=== PATIENT | male | born 1960 | race Caucasian/White ===

== ENCOUNTER 2017-07-06 12:49 | Emergency (ER) | payer BC ==
[~2017-07-06 12:49] MED LIST: ACET325T9 PO; ASCO100T4 PO; CETI10CA PO; CIPR250T30 PO; MULT-245 PO; OMEG300C PO
[2017-07-06 12:50] VITALS: BP 148/106
[2017-07-06] MEDS ORDERED: KETOROLAC 60 MG/2 ML VIAL. IM ONE (15:30)
[2017-07-06] MEDS ORDERED: CYCL-331 PO (15:55)
[2017-07-06] MEDS ORDERED: DICL100G18 TP (15:55)
--- NOTE | 2017-07-06 15:55 | PHYS DOC ---
Past History Past Medical History: COPD, Diverticulitis Past Surgical History: Other Alcohol Use: Occasionally Drug Use: None Adult General Chief Complaint Chief Complaint: GROIN PAIN HPI HPI Patient is a 56 year old M who presents with left groin pain started 5-6 weeks ago. He states that his pain is dull constant with intermittent worsening. He is associated with change in position and rotation of his hip. He also has developed lateral leg pain. He describes radiating pain down the lateral leg as well as the medial leg. He denies numbness or tingling. He has no back pain. He denies injury however he feels that he has been more active over the past 3-4 weeks His no other exacerbating or alleviating factors. He has no other associated symptoms. Review of Systems Review of Systems Constitutional: Denies fever or chills [] Eyes: Denies change in visual acuity, redness, or eye pain [] HENT: Denies nasal congestion or sore throat [] Respiratory: Denies cough or shortness of breath [] Cardiovascular: No additional information not addressed in HPI [] GI: Denies abdominal pain, nausea, vomiting, bloody stools or diarrhea [] : Denies dysuria or hematuria [] Musculoskeletal: Negative except history of present illness Integument: Denies rash or skin lesions [] Neurologic: Denies headache, focal weakness or sensory changes [] Endocrine: Denies polyuria or polydipsia [] All other systems were reviewed and found to be within normal limits, except as documented in this note. Family History Family History No pertinent family medical history was reported Current Medications Current Medications Current medications were reviewed Current Medications Medications (Trade) Dose Ordered Sig/[facility] Start Time Stop Time Status Last Admin Dose Admin Ketorolac Tromethamine (Toradol) 60 mg 1X ONCE 07/06/17 15:30 07/06/17 15:31 DC 07/06/17 15:16 60 MG Allergies Allergies Allergies Coded Allergies Type Severity Reaction Last Updated Verified Fenofibrate Nanocrystallized Allergy Mild 08/24/13 Yes Penicillins Allergy Mild 08/24/13 Yes fenofibrate,micronized Allergy Mild 08/24/13 Yes Physical Exam Physical Exam Constitutional: Well developed, well nourished, no acute distress, non-toxic appearance. [] HENT: Normocephalic, atraumatic, bilateral external ears normal, oropharynx moist, no oral exudates, nose normal. [] Eyes: PERRLA, EOMI, conjunctiva normal, no discharge. [] Neck: Normal range of motion, no tenderness, supple, no stridor. [] Cardiovascular:Heart rate regular rhythm, Lungs & Thorax: Bilateral breath sounds clear to auscultation [] Abdomen: Bowel sounds normal, soft, no tenderness, no masses, no pulsatile masses. [] Skin: Warm, dry, no erythema, no rash. [] Back: No tenderness, no CVA tenderness. [] Extremities: no cyanosis, no clubbing, ROM intact, no edema. [] Mild tenderness over the left greater trochanteric bursa. Pain reproducible with internal rotation of the hip. Normal range of motion and strength. No obvious injury noted Neurologic: Alert and oriented X 3, normal motor function, normal sensory function, no focal deficits noted. [] Psychologic: Affect normal, judgement normal, mood normal. [] Current Patient Data Vital Signs Vital Signs Date Time Temp Pulse Resp B/P (MAP) Pulse Ox O2 Delivery O2 Flow Rate FiO2 07/06/17 12:50 97.8 103 18 95 Room Air EKG EKG [] Radiology/Procedures Radiology/Procedures Two-view hip and pelvis x-ray Impressions: No acute disease Course & Med Decision Making Course & Med Decision Making Pertinent Labs and Imaging studies reviewed. (See chart for details) [] Dragon Disclaimer Dragon Disclaimer This electronic medical record was generated, in whole or in part, using a voice recognition dictation system. Departure Departure: Impression: Primary Impression: Muscle spasm Additional Impression: Greater trochanteric bursitis of left hip Disposition: HOME, SELF-CARE Condition: STABLE Referrals: FARZANEH STAPLETON (PCP) Patient Instructions: Hip Bursitis, Piriformis Syndrome Additional Instructions: Jack was seen in the emergency department for hip pain. No emergency medical condition was found on history or physical exam. He did have a normal x-ray. His symptoms are most consistent with bursitis of the hip as well as muscle spasm. He is given a prescription for Flexeril to treat his muscle spasm and full-term gel to use on his outside hip. He was encouraged to follow-up with his primary care doctor as soon as possible for further management. Scripts Diclofenac Sodium (VOLTAREN) 100 Gm Gel..gram. 1 GM TP QID, #100 GM 2 Refills Prov: DARLIN KIM MD 07/06/17 Cyclobenzaprine Hcl (CYCLOBENZAPRINE HCL) 10 Mg Tablet 1 TAB PO TID Y for PAIN for 3 Days, #9 TAB Prov: DARLIN KIM MD 07/06/17 Problem Qualifiers DARLIN KIM MD Jul 06, 2017 15:55
--- NOTE | 2017-07-06 15:55 | RAD ---
Left hip 2 views with one view pelvis. History: Left hip pain Single view was taken of the pelvis. There is no pelvic fracture or acute osseous abnormality. AP and lateral views were taken the left hip. There is no fracture or acute osseous abnormality. Impression: 1. Negative pelvis. 2. Negative left hip.
== END 2017-07-06 16:05 | disposition home or self-care (01) ==
LOC: ER 12:49
DX: M70.62 Trochanteric bursitis, left hip (principal); R10.32 Left lower quadrant pain; M62.838 Other muscle spasm; J44.9 Chronic obstructive pulmonary disease, unspecified; Z88.0 Allergy status to penicillin; Z88.8 Allergy status to other drugs, medicaments and biological substances
CPT/HCPCS: 73502; 96372; 99284; J1885

== ENCOUNTER 2017-08-09 22:44 | Emergency (ER) | payer BC, OTHER ==
[~2017-08-09] VITALS: Ht 182.9 cm; Wt 113.4 kg
[~2017-08-09 22:44] MED LIST changes: +CYCL-331 PO; +DICL100G18 TP
[2017-08-09 23:32] LABS: BASO # 0.1 x10^3/uL (0.0-0.2); BASO % 1 % (0-3); EOS # 0.1 x10^3/uL (0.0-0.7); EOS % 1 % (0-3); HEMATOCRIT 46.9 % (39.0-53.0); HEMOGLOBIN 16.6 g/dL (13.0-17.5); LYMPH # 2.2 x10^3/uL (1.0-4.8); LYMPH % 27 % (24-48); MEAN CORPUSCULAR HEMOGLOBIN 33 pg (25-35); MEAN CORPUSCULAR HGB CONC 35 g/dL (31-37); MEAN CORPUSCULAR VOLUME 93 fL (79-100); MONO # 0.7 x10^3/uL (0.0-1.1); MONO % 8 % (0-9); NEUT # 5.1 x10^3uL (1.8-7.7); NEUT % 62 % (31-73); PLATELET COUNT 152 x10^3/uL (140-400); RED BLOOD COUNT 5.07 x10^6/uL (4.30-5.70); RED CELL DISTRIBUTION WIDTH 12.5 % (11.5-14.5); WHITE BLOOD COUNT 8.2 x10^3/uL (4.0-11.0)
[2017-08-09 23:37] LABS: CALCIUM 8.5 mg/dL (8.5-10.1); CREATININE 1.3 mg/dL (0.7-1.3); GFR 56.9; POTASSIUM 3.6 mmol/L (3.5-5.1)
--- NOTE | 2017-08-09 23:38 | PHYS DOC ---
Past History Past Medical History: COPD, Diverticulitis Past Surgical History: Tonsillectomy, Other Smoking: Cigarettes Alcohol Use: Occasionally Drug Use: None Adult General Chief Complaint Chief Complaint: LOWER EXTREMITY SWELLING HPI HPI Patient is a 56 year old male who presents with right calf swelling and pain. He states it started on Friday. On he was seen in the doctors office (Dr Franklin) for a recheck on his right hip pain (since June) and placed on antibiotics then for a sore throat. He states that the pain has been constant. No chest pain, no shortness of air. No travel or immobilization. No abdominal complaints, no nausea, vomiting and diarrhea. He feels like the leg might be more red. No flu vaccine this year. Review of Systems Review of Systems Constitutional: Denies fever or chills Eyes: Denies change in visual acuity, redness, or eye pain HENT: Denies nasal congestion or sore throat Respiratory: Denies cough or shortness of breath Cardiovascular: No chest pain GI: Denies abdominal pain, nausea, vomiting, bloody stools or diarrhea : Denies dysuria or hematuria Musculoskeletal: Denies back pain. Chronic left hip pain. POS right lower leg pain and swelling. Integument: Denies rash or skin lesions Neurologic: Denies headache, focal weakness or sensory changes ia All other systems were reviewed and found to be within normal limits, except as documented in this note. Allergies Allergies Allergies Coded Allergies Type Severity Reaction Last Updated Verified Fenofibrate Nanocrystallized Allergy Mild 08/24/13 Yes Penicillins Allergy Mild 08/24/13 Yes fenofibrate,micronized Allergy Mild 08/24/13 Yes Physical Exam Physical Exam Constitutional: Well developed, well nourished, no acute distress, non-toxic appearance. HENT: Normocephalic, atraumatic, bilateral external ears normal, oropharynx moist, no oral exudates, nose normal. Eyes: PERRLA, EOMI, conjunctiva normal, no discharge. Neck: Normal range of motion, no tenderness, supple, no stridor. Cardiovascular:Heart rate regular rhythm, no murmur Lungs & Thorax: Bilateral breath sounds clear to auscultation Abdomen: Bowel sounds normal, soft, no tenderness, no masses, no pulsatile masses. Skin: Warm, dry, no erythema, no rash. Back: No tenderness, no CVA tenderness. Extremities: Minimal tenderness right lower leg, no cyanosis, no clubbing, ROM intact, no edema. No erythema or skin changes noted. Neurologic: Alert and oriented X 3, normal motor function, normal sensory function, no focal deficits noted. Current Patient Data Vital Signs T 98, P 86, BP 186/100, sat 93%, RR 14 Lab Results Laboratory Tests Test 08/09/17 23:10 White Blood Count 8.2 x10^3/uL (4.0-11.0) Red Blood Count 5.07 x10^6/uL (4.30-5.70) Hemoglobin 16.6 g/dL (13.0-17.5) Hematocrit 46.9 % (39.0-53.0) Mean Corpuscular Volume 93 fL (79-100) Mean Corpuscular Hemoglobin 33 pg (25-35) Mean Corpuscular Hemoglobin Concent 35 g/dL (31-37) Red Cell Distribution Width 12.5 % (11.5-14.5) Platelet Count 152 x10^3/uL (140-400) Neutrophils (%) (Auto) 62 % (31-73) Lymphocytes (%) (Auto) 27 % (24-48) Monocytes (%) (Auto) 8 % (0-9) Eosinophils (%) (Auto) 1 % (0-3) Basophils (%) (Auto) 1 % (0-3) Neutrophils # (Auto) 5.1 x10^3uL (1.8-7.7) Lymphocytes # (Auto) 2.2 x10^3/uL (1.0-4.8) Monocytes # (Auto) 0.7 x10^3/uL (0.0-1.1) Eosinophils # (Auto) 0.1 x10^3/uL (0.0-0.7) Basophils # (Auto) 0.1 x10^3/uL (0.0-0.2) Sodium Level 140 mmol/L (136-145) Potassium Level 3.6 mmol/L (3.5-5.1) Chloride Level 103 mmol/L (98-107) Carbon Dioxide Level 27 mmol/L (21-32) Anion Gap 10 (6-14) Blood Urea Nitrogen 9 mg/dL (8-26) Creatinine 1.3 mg/dL (0.7-1.3) Estimated GFR (Cockcroft-Gault) 56.9 Glucose Level 157 mg/dL (70-99) Calcium Level 8.5 mg/dL (8.5-10.1) Radiology/Procedures Radiology/Procedures [address] [id number] IMAGING REPORT Signed PATIENT: CODY BANKS ACCOUNT: [id number] : 1960 LOCATION: ER AGE: 56 SEX: M EXAM STATUS: REG ER ORD. PHYSICIAN: KASHMIR BRICEÑO MD REASON: Calf pain and swelling-right/US tech will be here in 40 mins jnr PROCEDURE: VENOUS LOWER EXTREMITY RIGHT EXAM: Right lower extremity venous Doppler. HISTORY: Right lower extremity pain/swelling. COMPARISON: None. FINDINGS: Grayscale and Doppler analysis of the right lower extremity deep venous system was performed with graded compression and augmentation. The common femoral, greater saphenous, superficial femoral, popliteal and calf veins were assessed. There is no evidence of deep venous thrombosis. An incidental right inguinal lymph node appears benign. IMPRESSION: 1. No evidence of deep venous thrombosis. Electronically signed by: Negin Kevin MD (08/10/2017 12:49 AM) [facility] DICTATED AND SIGNED BY: ALIZE KEVIN MD DATE: 08/10/17 0048 CC: KASHMIR BRICEÑO MD; DARLIN FRANKLIN MD ~ Course & Med Decision Making Course & Med Decision Making Evaluated patient upon arrival. US ordered to r/o DVT. His blood pressure is elevated; which he states it has been elevated in the past "but not high enough in the office to start me on medication." At midnight: lab normal. Awaiting US arrival. At 0020 am US here.At 0045 am: US negative for DVT. Lymph nodes noted. He is on Doxycycline for a sore throat presently. That will cover him for cellulitis. He is to follow up with his PCP. Toradol IV for pain given here. I have spoken with the patient and/or caregivers. I have explained the patient' s condition, diagnosis and treatment plan based on the information available to me at this time. I have answered the patient's and/or caregiver's questions and addressed any concerns. The patient and/or caregivers have as good an understanding of the patient's diagnosis, condition and treatment plan as can be expected at this point. The patient's condition is stable and appropriate for discharge from the emergency department. The patient will pursue further outpatient evaluation with the primary care physician or other designated or consulting physician as outlined in the discharge instructions. The patient and/or caregivers are agreeable to this plan of care and follow-up instructions have been explained in detail. The patient and/or caregivers have received these instructions in written format and have expressed an understanding of the discharge instructions. The patient and/or caregivers are aware that any significant change in condition or worsening of symptoms should prompt an immediate return to this or the closest emergency department or a call to 911. Rosemary Disclaimer Dragon Disclaimer This electronic medical record was generated, in whole or in part, using a voice recognition dictation system. Departure Departure: Impression: Primary Impression: Right leg pain Additional Impression: Cellulitis of right leg Disposition: HOME, SELF-CARE Condition: STABLE Referrals: DARLIN FRANKLIN MD (PCP) Patient Instructions: Cellulitis Additional Instructions: KEEP TAKING YOUR DOXYCYLINE THAT IS ALREADY PRESCRIBED. CALL YOUR DOCTOR'S OFFICE ON FRIDAY FOR A RECHECK Scripts Naproxen (NAPROSYN) 500 Mg Tablet 1 TAB PO BID, #30 TAB 1 Refill Prov: KASHMIR BRICEÑO MD 08/10/17 Problem Qualifiers KASHMIR BRICEÑO MD Aug 09, 2017 23:38
[2017-08-10] MEDS ORDERED: NAPR-683 PO (00:52)
--- NOTE | 2017-08-10 00:52 | RAD ---
EXAM: Right lower extremity venous Doppler. HISTORY: Right lower extremity pain/swelling. COMPARISON: None. FINDINGS: Grayscale and Doppler analysis of the right lower extremity deep venous system was performed with graded compression and augmentation. The common femoral, greater saphenous, superficial femoral, popliteal and calf veins were assessed. There is no evidence of deep venous thrombosis. An incidental right inguinal lymph node appears benign. IMPRESSION: 1. No evidence of deep venous thrombosis. Electronically signed by: Negin Kevin MD (08/10/2017 12:49 AM) [facility]
[2017-08-10 00:57] LABS: BILIRUBIN,URINE NEG (NEG); CLARITY,URINE CLEAR; COLOR,URINE YELLOW; GLUCOSE,URINE NEG (NEG)
[2017-08-10 00:58] LABS: BACTERIA,URINE 0 /HPF (0-FEW); NITRITE,URINE NEG (NEG); RBC,URINE 0 /HPF (0-2); UROBILINOGEN,URINE 0.2 mg/dL (0.2 mg/dL); WBC,URINE 0 /HPF (0-4)
[2017-08-10 01:00] VITALS: BP 153/93
[2017-08-10] MEDS ORDERED: KETOROLAC 30 MG/ML VIAL. IV ONE (01:00)
== END 2017-08-10 01:04 | disposition home or self-care (01) ==
LOC: ER 22:44
DX: L03.115 Cellulitis of right lower limb (principal); G89.29 Other chronic pain; F17.210 Nicotine dependence, cigarettes, uncomplicated; J44.9 Chronic obstructive pulmonary disease, unspecified; Z88.0 Allergy status to penicillin; Z88.8 Allergy status to other drugs, medicaments and biological substances
CPT/HCPCS: 36415; 80048; 81001; 85025; 93971; 96374; 99285; J1885

== ENCOUNTER 2017-11-25 16:50 | Emergency (ER) | payer OTHER ==
[~2017-11-25] VITALS: Ht 182.9 cm; Wt 113.4 kg
[~2017-11-25 16:50] MED LIST changes: +NAPR-683 PO
[2017-11-25] MEDS ORDERED: IBUPROFEN 800 MG TABLET. PO ONE (17:45)
--- NOTE | 2017-11-25 17:50 | PHYS DOC ---
Past History Past Medical History: COPD, Diverticulitis Past Surgical History: Tonsillectomy, Other Smoking: Cigarettes Alcohol Use: Occasionally Drug Use: None Adult General Chief Complaint Chief Complaint: LOWER EXT PAIN HPI HPI 57-year-old male patient states he lost his balance and twisted his left lower extremity and felt severe pain from back of his knee radiated to his ankle and rated his pain 10 over 10. Patient states he was not able to walk after injury but after few minutes he was able to walk. Patient rated his pain 8/10 and denies focal neuro deficit or other injuries. Review of Systems Review of Systems Constitutional: Denies fever or chills [] Eyes: Denies change in visual acuity, redness, or eye pain [] HENT: Denies nasal congestion or sore throat [] Respiratory: Denies cough or shortness of breath [] Cardiovascular: No additional information not addressed in HPI [] GI: Denies abdominal pain, nausea, vomiting, bloody stools or diarrhea [] : Denies dysuria or hematuria [] Musculoskeletal: Denies back pain, reports joint pain [] Integument: Denies rash or skin lesions [] Neurologic: Denies headache, focal weakness or sensory changes [] Endocrine: Denies polyuria or polydipsia [] All other systems were reviewed and found to be within normal limits, except as documented in this note. Current Medications Current Medications Current Medications Medications (Trade) Dose Ordered Sig/[facility] Start Time Stop Time Status Last Admin Dose Admin Ibuprofen (Motrin) 800 mg 1X ONCE 11/25/17 17:45 11/25/17 17:46 Allergies Allergies Allergies Coded Allergies Type Severity Reaction Last Updated Verified Fenofibrate Nanocrystallized Allergy Mild 08/24/13 Yes Penicillins Allergy Mild 08/24/13 Yes fenofibrate,micronized Allergy Mild 08/24/13 Yes Physical Exam Physical Exam Constitutional: Well developed, well nourished, mild distress, non-toxic appearance. [] HEENT: Atraumatic] Eyes: PERRLA, EOMI, conjunctiva normal, no discharge. [] Neck: Normal range of motion, no tenderness, supple, no stridor. [] Cardiovascular:Heart rate regular rhythm, no murmur [] Lungs & Thorax: Bilateral breath sounds clear to auscultation [] Skin: Warm, dry, no erythema, no rash. [] Extremities: Left lower extremity without sign of injury or edema or deformity, normal range of motion of left knee and ankle, mild tenderness in lateral malleolus, no neurovascular deficit Neurologic: Alert and oriented X 3, normal motor function, normal sensory function, no focal deficits noted. [] Psychologic: Affect normal, judgement normal, mood normal. [] Current Patient Data Vital Signs Vital Signs Date Time Temp Pulse Resp B/P (MAP) Pulse Ox O2 Delivery O2 Flow Rate FiO2 11/25/17 17:26 98.1 98 18 98 Room Air EKG EKG [] Radiology/Procedures Radiology/Procedures X-ray of the knee and ankle was interpreted by me. No sign of acute fracture. There is a 2 mm calcification area in the posterior of left knee or possible avulsion fracture[] Course & Med Decision Making Course & Med Decision Making Pertinent Imaging studies reviewed. (See chart for details) [] Dragon Disclaimer Dragon Disclaimer This electronic medical record was generated, in whole or in part, using a voice recognition dictation system. Departure Departure: Impression: Primary Impression: Ankle sprain Additional Impressions: Knee sprain Tobacco abuse Tobacco abuse counseling Disposition: HOME, SELF-CARE (At 181) Condition: IMPROVED Referrals: DARLIN FRANKLIN MD (PCP) Patient Instructions: Ankle Sprain, Knee Sprain, Smoking Cessation Additional Instructions: Apply ice on the affected area Follow-up with your primary care physician in 3-5 days Return to ER if not getting better Scripts Ibuprofen (IBUPROFEN) 800 Mg Tablet 1 TAB PO TID, #30 TAB Prov: HERBERTH BLAIR MD 11/25/17 Hydrocodone Bit/Acetaminophen (NORCO 5-325 TABLET) 1 Each Tablet 1 TAB PO PRN Q6HRS Y for PAIN for 14 Days, TAB 0 Refills Prov: HERBERTH BLAIR MD 11/25/17 Problem Qualifiers HERBERTH BLAIR MD November 25, 2017 17:50
[2017-11-25] MEDS ORDERED: HYDR-971 PO (18:14)
[2017-11-25] MEDS ORDERED: IBUP800T19 PO (18:14)
[2017-11-25 18:29] VITALS: BP 154/86
--- NOTE | 2017-11-26 08:11 | RAD ---
ANKLE LEFT 3V, KNEE LEFT 3V History: SWOLLEN ANKLE.INJURY THIS PM BY STEPPING INCORRECTLY OFF A LADDER. TWISTED ANKLE, RADIATING PAIN IN LOWER CALF Comparison: None. Findings: Left ankle: 3 views of the left ankle are submitted. No acute fracture or dislocation is identified. There is plantar calcaneal enthesophyte. Left knee: 3 views of the left knee are submitted. No acute fracture is identified. There is no significant joint effusion. It is difficult to confirm integrity of patellar tendon on this exam. Impression: 1. It is difficult to confirm patellar tendon integrity on this exam, correlation with clinical findings advised. Otherwise no acute fracture identified of the left knee. 2. No acute fracture is identified of the left ankle. Electronically signed by: Romeo Navarrete MD (11/26/2017 8:08 AM) [id number]
== END 2017-11-25 18:30 | disposition home or self-care (01) ==
LOC: ER 16:50
DX: S93.402A Sprain of unspecified ligament of left ankle, initial encounter (principal); S83.92XA Sprain of unspecified site of left knee, initial encounter; J44.9 Chronic obstructive pulmonary disease, unspecified; F17.210 Nicotine dependence, cigarettes, uncomplicated; Z88.0 Allergy status to penicillin; Z88.8 Allergy status to other drugs, medicaments and biological substances; X50.1XXA Overexertion from prolonged static or awkward postures, initial encounter; Y93.89 Activity, other specified; Y92.89 Other specified places as the place of occurrence of the external cause; Y99.8 Other external cause status
CPT/HCPCS: 73562; 73610; 99284

== ENCOUNTER 2018-09-20 12:32 | Emergency (ER) | payer OTHER ==
[~2018-09-20] VITALS: Ht 182.9 cm; Wt 115.9 kg
[~2018-09-20 12:32] MED LIST changes: +HYDR-3165 PO; +IBUP800T19 PO
[2018-09-20 13:05] LABS: BASO # 0.1 x10^3/uL (0.0-0.2); BASO % 1 % (0-3); EOS # 0.1 x10^3/uL (0.0-0.7); EOS % 1 % (0-3); HEMATOCRIT 53.3 % (39.0-53.0); HEMOGLOBIN 18.6 g/dL (13.0-17.5); LYMPH # 2.2 x10^3/uL (1.0-4.8); LYMPH % 26 % (24-48); MEAN CORPUSCULAR HEMOGLOBIN 33 pg (25-35); MEAN CORPUSCULAR HGB CONC 35 g/dL (31-37); MEAN CORPUSCULAR VOLUME 93 fL (79-100); MONO # 0.6 x10^3/uL (0.0-1.1); MONO % 7 % (0-9); NEUT # 5.6 x10^3uL (1.8-7.7); NEUT % 65 % (31-73); PLATELET COUNT 164 x10^3/uL (140-400); RED BLOOD COUNT 5.72 x10^6/uL (4.30-5.70); RED CELL DISTRIBUTION WIDTH 13.1 % (11.5-14.5); WHITE BLOOD COUNT 8.6 x10^3/uL (4.0-11.0)
[2018-09-20] MEDS ORDERED: ASPIRIN 81 MG TAB.CHEW PO ONE (13:15)
[2018-09-20 13:18] LABS: ALBUMIN 4.1 g/dL (3.4-5.0); CALCIUM 8.6 mg/dL (8.5-10.1); CREATININE 0.9 mg/dL (0.7-1.3); GFR 86.4; POTASSIUM 4.1 mmol/L (3.5-5.1); TOTAL BILIRUBIN 0.4 mg/dL (0.2-1.0); TOTAL PROTEIN 8.1 g/dL (6.4-8.2)
--- NOTE | 2018-09-20 13:55 | PHYS DOC ---
Past History Past Medical History: COPD, Diverticulitis Past Surgical History: Tonsillectomy, Other Smoking: Cigarettes Alcohol Use: Occasionally Drug Use: None Adult General Chief Complaint Chief Complaint: CHEST PAIN HPI HPI 58-year-old male presents with chest pain and central back pain. Patient states he's been having intermittent pain that started between his shoulder blades for 7-8 days. It is worse with movement and sometimes with deep breathing. Patient presents today because the pain seems to work around to the middle of his chest. Patient has not had a stress test or cardiac catheter in the past. About 25 years ago he had fluid around his heart and his lungs but was never really told why that was. He had been drained and has had no trouble since. Patient has had mild shortness of breath but denies diaphoresis. This is not worse with activity it seems to be intermittent in its own schedule. Patient has not had fever or chills. No recent falls, trauma, or overuse that he can think of. Review of Systems Review of Systems Constitutional: Denies fever or chills [] Eyes: Denies change in visual acuity, redness, or eye pain [] HENT: Denies nasal congestion or sore throat [] Respiratory: Denies cough or shortness of breath [] Cardiovascular: No additional information not addressed in HPI [] GI: Denies abdominal pain, nausea, vomiting, bloody stools or diarrhea [] : Denies dysuria or hematuria [] Musculoskeletal: Right sided posterior chest wall pain[] Integument: Denies rash or skin lesions [] Neurologic: Denies headache, focal weakness or sensory changes [] Endocrine: Denies polyuria or polydipsia [] All other systems were reviewed and found to be within normal limits, except as documented in this note. Current Medications Current Medications Current Medications Medications (Trade) Dose Ordered Sig/Chantel Start Time Stop Time Status Last Admin Dose Admin Aspirin (Children'S Aspirin) 324 mg 1X ONCE 09/20/18 13:15 09/20/18 13:16 DC 09/20/18 13:16 324 MG Allergies Allergies Allergies Coded Allergies Type Severity Reaction Last Updated Verified Fenofibrate Nanocrystallized Allergy Mild 08/24/13 Yes Penicillins Allergy Mild 08/24/13 Yes fenofibrate,micronized Allergy Mild 08/24/13 Yes Physical Exam Physical Exam Constitutional: Well developed, well nourished, no acute distress, non-toxic appearance. [] HENT: Normocephalic, atraumatic, bilateral external ears normal, oropharynx moist, no oral exudates, nose normal. [] Eyes: PERRLA, EOMI, conjunctiva normal, no discharge. [] Neck: Normal range of motion, no tenderness, supple, no stridor. [] Cardiovascular:Heart rate regular rhythm, no murmur [] Lungs & Thorax: Bilateral breath sounds clear to auscultation [] Abdomen: Bowel sounds normal, soft, no tenderness, no masses, no pulsatile masses. [] Skin: Warm, dry, no erythema, no rash. [] Back: Mild paraspinal tenderness to the T7-8[] Extremities: No tenderness, no cyanosis, no clubbing, ROM intact, no edema. [] Neurologic: Alert and oriented X 3, normal motor function, normal sensory function, no focal deficits noted. [] Psychologic: Affect normal, judgement normal, mood normal. [] Current Patient Data Vital Signs Vital Signs Date Time Temp Pulse Resp B/P (MAP) Pulse Ox O2 Delivery O2 Flow Rate FiO2 09/20/18 12:32 98.2 83 18 95 Room Air Lab Results Laboratory Tests Test 09/20/18 12:47 White Blood Count 8.6 x10^3/uL (4.0-11.0) Red Blood Count 5.72 x10^6/uL (4.30-5.70) H Hemoglobin 18.6 g/dL (13.0-17.5) H Hematocrit 53.3 % (39.0-53.0) H Mean Corpuscular Volume 93 fL (79-100) Mean Corpuscular Hemoglobin 33 pg (25-35) Mean Corpuscular Hemoglobin Concent 35 g/dL (31-37) Red Cell Distribution Width 13.1 % (11.5-14.5) Platelet Count 164 x10^3/uL (140-400) Neutrophils (%) (Auto) 65 % (31-73) Lymphocytes (%) (Auto) 26 % (24-48) Monocytes (%) (Auto) 7 % (0-9) Eosinophils (%) (Auto) 1 % (0-3) Basophils (%) (Auto) 1 % (0-3) Neutrophils # (Auto) 5.6 x10^3uL (1.8-7.7) Lymphocytes # (Auto) 2.2 x10^3/uL (1.0-4.8) Monocytes # (Auto) 0.6 x10^3/uL (0.0-1.1) Eosinophils # (Auto) 0.1 x10^3/uL (0.0-0.7) Basophils # (Auto) 0.1 x10^3/uL (0.0-0.2) Sodium Level 138 mmol/L (136-145) Potassium Level 4.1 mmol/L (3.5-5.1) Chloride Level 102 mmol/L (98-107) Carbon Dioxide Level 26 mmol/L (21-32) Anion Gap 10 (6-14) Blood Urea Nitrogen 7 mg/dL (8-26) L Creatinine 0.9 mg/dL (0.7-1.3) Estimated GFR (Cockcroft-Gault) 86.4 BUN/Creatinine Ratio 8 (6-20) Glucose Level 113 mg/dL (70-99) H Calcium Level 8.6 mg/dL (8.5-10.1) Total Bilirubin 0.4 mg/dL (0.2-1.0) Aspartate Amino Transferase (AST) 23 U/L (15-37) Alanine Aminotransferase (ALT) 42 U/L (16-63) Alkaline Phosphatase 130 U/L (46-116) H Troponin I Quantitative < 0.017 ng/mL (0-0.055) Total Protein 8.1 g/dL (6.4-8.2) Albumin 4.1 g/dL (3.4-5.0) Albumin/Globulin Ratio 1.0 (1.0-1.7) EKG EKG Sinus rhythm, rate 85, normal axis, no ST elevations or depressions.[] Radiology/Procedures Radiology/Procedures [] Impressions: PA chest with 3 view right RIBS HISTORY: Right-sided rib and chest pain for one week. FINDINGS: Heart size is not enlarged. Incidentally noted right azygos fissure. No pneumothorax or pleural effusion. No consolidating infiltrate. Small dense left lung nodule compatible with a granuloma. There is a subtle density at the right lung base, may represent a nipple shadow, somewhat similar finding is seen at the left lung base. No evidence of a displaced right rib fracture. No definite area of focal tenderness is not known. IMPRESSION: 1. No acute radiographic findings. 2. No displaced right rib fracture seen. 3. Small partially seen densities in both lung bases may represent nipple shadows. Electronically signed by: Shamar Izaguirre MD (09/20/2018 2:50 PM) [facility] DICTATED AND SIGNED BY: SHAMAR IZAGUIRRE MD DATE: 09/20/18 1444 CC: HAYLEY ALEMAN DO; DARLIN FRANKLIN MD ~ Course & Med Decision Making Course & Med Decision Making Pertinent Labs and Imaging studies reviewed. (See chart for details) Patient's HEART score is 2. Patient's chest x-ray is needed for acute findings. His troponin is negative. The rest of his labs are unremarkable except for an elevated hemoglobin and hematocrit. I have advised that he follow-up on this with his primary physician. His EKG is unremarkable. [] Dragon Disclaimer Dragon Disclaimer This electronic medical record was generated, in whole or in part, using a voice recognition dictation system. Departure Departure: Impression: Primary Impression: Chest wall pain Disposition: 01 HOME, SELF-CARE Condition: STABLE Referrals: DARLIN FRANKLIN MD (PCP) Patient Instructions: Chest Wall Pain, [id number] HAYLEY ALEMAN DO Sep 20, 2018 13:55
[2018-09-20 14:09] VITALS: BP 163/97
--- NOTE | 2018-09-20 14:47 | EKG ---
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
--- NOTE | 2018-09-20 14:53 | RAD ---
PA chest with 3 view right RIBS HISTORY: Right-sided rib and chest pain for one week. FINDINGS: Heart size is not enlarged. Incidentally noted right azygos fissure. No pneumothorax or pleural effusion. No consolidating infiltrate. Small dense left lung nodule compatible with a granuloma. There is a subtle density at the right lung base, may represent a nipple shadow, somewhat similar finding is seen at the left lung base. No evidence of a displaced right rib fracture. No definite area of focal tenderness is not known. IMPRESSION: 1. No acute radiographic findings. 2. No displaced right rib fracture seen. 3. Small partially seen densities in both lung bases may represent nipple shadows. Electronically signed by: Shamar Izaguirre MD (09/20/2018 2:50 PM) [facility]
[2018-09-30] MEDS ORDERED: LEVO500T59 PO (12:10)
[2018-09-30] MEDS ORDERED: AMLO10TA4 PO (12:10)
== END 2018-09-20 15:00 | disposition home or self-care (01) ==
LOC: ER 12:32
DX: R07.89 Other chest pain (principal); M54.6 Pain in thoracic spine; J44.9 Chronic obstructive pulmonary disease, unspecified; F17.210 Nicotine dependence, cigarettes, uncomplicated; Z88.0 Allergy status to penicillin; Z88.8 Allergy status to other drugs, medicaments and biological substances
CPT/HCPCS: 36415; 71101; 80053; 84484; 85025; 93005; 99284

== ENCOUNTER 2018-09-26 12:53 | Inpatient (IN) | payer OTHER ==
[~2018-09-26] VITALS: Ht 182.9 cm; Wt 117.1 kg
[2018-09-26] MEDS ORDERED: IV NORMAL SALINE 1,000ML 1,000 ML IV SCH (13:11)
[2018-09-26] MEDS ORDERED: IPRATRPIUM/ALBUTEROL 0.5/2.5MG 3 ML NEBU. NEB ONE (13:15)
[2018-09-26] MEDS ORDERED: methylPREDNISolone SOD SUCC PF 125 MG/2 ML VIAL. IV ONE (13:15)
[2018-09-26] MEDS ORDERED: IBUPROFEN 800 MG TABLET. PO ONE (13:15)
--- NOTE | 2018-09-26 13:20 | PHYS DOC ---
Past History Past Medical History: COPD, Diverticulitis Past Surgical History: Tonsillectomy, Other Smoking: Cigarettes Alcohol Use: Occasionally Drug Use: None Adult General Chief Complaint Chief Complaint: SHORTNESS OF BREATH [facility] HPI Patient is a 58 year old male who presents with playing of shortness of breath and fever. Patient has history of COPD without spitting physician and currently smoking. Patient complaining of dry cough, shortness of breath and nasal congestion started 3 days ago that gradually getting worse. Patient complaining of constant shortness of breath since last night with fever of 103 today. Patient took 1000 mg of Tylenol 3 hours prior to arrival to ER and had temperature of 101 in triage. Patient denies sick contact , chest pain, vomiting and diarrhea, urinary symptom. Review of Systems Review of Systems Constitutional: Reports fever and chills Eyes: Denies change in visual acuity, redness, or eye pain [] HENT: Reports nasal congestion or sore throat Respiratory: Reports cough and shortness of breath Cardiovascular: No additional information not addressed in HPI [] GI: Denies abdominal pain, nausea, vomiting, bloody stools or diarrhea [] : Denies dysuria or hematuria [] Musculoskeletal: Denies back pain or joint pain, reports myalgia [] Integument: Denies rash or skin lesions [] Neurologic: Denies headache, focal weakness or sensory changes [] Endocrine: Denies polyuria or polydipsia [] All other systems were reviewed and found to be within normal limits, except as documented in this note. Allergies Allergies Allergies Coded Allergies Type Severity Reaction Last Updated Verified Fenofibrate Nanocrystallized Allergy Mild 08/24/13 Yes Penicillins Allergy Mild 08/24/13 Yes fenofibrate,micronized Allergy Mild 08/24/13 Yes Physical Exam Physical Exam Constitutional: Well developed, well nourished, mild distress, non-toxic appearance. [] HENT: Normocephalic, atraumatic, bilateral external ears normal, oropharynx moist, pharyngeal erythema, no oral exudates, nose normal. [] Eyes: PERRLA, EOMI, conjunctiva normal, no discharge. [] Neck: Normal range of motion, no tenderness, supple, no stridor. [] Cardiovascular: Tachycardia, no murmur [] Lungs & Thorax: Decrease of air movement in right basilar, no acute respiratory distress. Abdomen: Bowel sounds normal, soft, no tenderness, no masses, no pulsatile masses. [] Skin: Warm, dry, no erythema, no rash. [] Back: No tenderness, no CVA tenderness. [] Extremities: No tenderness, no cyanosis, no clubbing, ROM intact, no edema. [] Neurologic: Alert and oriented X 3, normal motor function, normal sensory function, no focal deficits noted. [] Psychologic: Affect normal, judgement normal, mood normal. [] EKG EKG [] Radiology/Procedures Radiology/Procedures [address] [address] IMAGING REPORT Signed PATIENT: CODY BANKS ACCOUNT: [id number] : 1960 LOCATION: ER AGE: 58 SEX: M EXAM STATUS: REG ER ORD. PHYSICIAN: HERBERTH BLAIR MD REASON: fever and shortness of breath PROCEDURE: CHEST PA & LATERAL CHEST PA LATERAL Technique: PA and lateral views of the chest were obtained. Clinical History: COUGH, SOB X 3 DAYS, HX OF COPD Comparison: September 14, 2013. Findings: The heart and pulmonary vasculature appear within normal limits. The lungs are clear. The pleural margins are clear. Impression: No acute chest process is seen. Electronically signed by: Jonathan Godinez III, MD (09/26/2018 1:43 PM) [facility] DICTATED AND SIGNED BY: JONATHAN GODINEZ III, MD DATE: 09/26/18 1344 CC: DARLIN FRANKLIN MD; HERBERTH BLAIR MD ~ Course & Med Decision Making Course & Med Decision Making Pertinent Labs and Imaging studies reviewed. (See chart for details) Evaluation of patient in ER showed 58-year-old male patient with history of COPD presented with fever and cough and congestion and shortness of breath. Patient had temperature of 101.9 at arrival to ER and treated with IV fluid, DuoNeb, Solu-Medrol and ibuprofen. Patient had lactic of 3.9 tachycardia, leukocytosis without hypertension and confusion. Chest x-ray did not show infiltration. Patient had a blood sugar of 207 without history of diabetes mellitus. Plan to admit patient with diagnosis of sepsis and COPD exacerbation. Dr. Franklin accepted admission at 1409. Dragon Disclaimer Dragon Disclaimer This electronic medical record was generated, in whole or in part, using a voice recognition dictation system. Departure Departure: Impression: Primary Impression: Severe sepsis Additional Impressions: Fever Dyspnea COPD exacerbation Elevated blood sugar Hypocalcemia Alkaline phosphatase raised Disposition: ADMITTED INPATIENT (at 1410) Admitting Physician: Darlin Franklin (accepted admission at 1409) Condition: IMPROVED Referrals: DARLIN FRANKLIN MD (PCP) Problem Qualifiers Additional Impressions: Fever Fever type: unspecified Qualified Codes: R50.9 - Fever, unspecified Dyspnea Dyspnea type: shortness of breath Qualified Codes: R06.02 - Shortness of breath HERBERTH BLAIR MD Sep 26, 2018 13:20
[2018-09-26 13:27] LABS: BASO # 0.1 x10^3/uL (0.0-0.2); BASO % 1 % (0-3); EOS % 0 % (0-3); HEMATOCRIT 49.3 % (39.0-53.0); HEMOGLOBIN 17.1 g/dL (13.0-17.5); LYMPH # 0.6 x10^3/uL (1.0-4.8); LYMPH % 5 % (24-48); MEAN CORPUSCULAR HEMOGLOBIN 32 pg (25-35); MEAN CORPUSCULAR HGB CONC 35 g/dL (31-37); MEAN CORPUSCULAR VOLUME 93 fL (79-100); MONO # 0.5 x10^3/uL (0.0-1.1); MONO % 4 % (0-9); NEUT # 11.7 x10^3uL (1.8-7.7); NEUT % 90 % (31-73); PLATELET COUNT 141 x10^3/uL (140-400); RED BLOOD COUNT 5.31 x10^6/uL (4.30-5.70); RED CELL DISTRIBUTION WIDTH 12.8 % (11.5-14.5)
[2018-09-26 13:43] LABS: INFLUENZA A PATIENT NEGATIVE (NEGATIVE); INFLUENZA B PATIENT NEGATIVE (NEGATIVE)
[2018-09-26] MEDS ORDERED: IV NORMAL SALINE 1,000ML 1,000 ML IV ONE ×2 (13:45→14:30)
[2018-09-26 13:46] LABS: ALBUMIN 3.7 g/dL (3.4-5.0); ALBUMIN/GLOBULIN RATIO 1.1 (1.0-1.7); CALCIUM 7.7 mg/dL (8.5-10.1); CREATININE 1.2 mg/dL (0.7-1.3); POTASSIUM 3.7 mmol/L (3.5-5.1); TOTAL BILIRUBIN 0.5 mg/dL (0.2-1.0); TOTAL PROTEIN 7.2 g/dL (6.4-8.2)
--- NOTE | 2018-09-26 13:46 | RAD ---
CHEST PA LATERAL Technique: PA and lateral views of the chest were obtained. Clinical History: COUGH, SOB X 3 DAYS, HX OF COPD Comparison: September 14, 2013. Findings: The heart and pulmonary vasculature appear within normal limits. The lungs are clear. The pleural margins are clear. Impression: No acute chest process is seen. Electronically signed by: Lavon Gonzalez III, MD (09/26/2018 1:43 PM) [facility]
[2018-09-26] MEDS ORDERED: IV NORMAL SALINE 50ML 50 ML ONE (13:52)
[2018-09-26] MEDS ORDERED: cefTRIAXone SODIUM 1 GM VIAL ONE (13:52)
[2018-09-26] MEDS ORDERED: IV NORMAL SALINE 500ML 500 ML IV ONE (14:30)
[2018-09-26 14:56] VITALS: BP 155/73
[2018-09-26] MEDS ORDERED: CYCLOBENZAPRINE 10 MG TABLET. PO PRN (15:45)
[2018-09-26] MEDS ORDERED: HYDROcodone/APAP 5/325MG 1 TAB TABLET PO PRN (15:45)
[2018-09-26] MEDS: VANCOMYCIN PER PHARMACY MC PRN (16:03)
[2018-09-26] MEDS: IPRATRPIUM/ALBUTEROL 0.5/2.5MG 3 ML NEBU. NEB SCH ×2 (16:05→21:28)
[2018-09-26] MEDS: DICLOFENAC SODIUM 1% TOPICAL GEL 100GM TUBE. TP SCH ×2 (17:00→21:45)
[2018-09-26] MEDS: IV NORMAL SALINE 1,000ML 1,000 ML IV SCH (17:01)
[2018-09-26] MEDS ORDERED: diphenhydrAMINE ORAL ELIXIR 12.5 MG/5 ML ML PO PRN (17:15)
--- NOTE | 2018-09-26 17:49 | HP ---
ADMIT DATE: 09/26/2018 A 58-year-old male, who came in through the Emergency Room with increased shortness of breath, elevated temperature of 103 degrees. The patient was extremely short of breath. He denied chest pain, vomiting, nausea or diaphoresis. The patient was seen initially in the Emergency Room and was noted to have an elevated temperature as well as slight elevated white count of 13,000, platelets decreased, but his lactic acid was 3.9. The patient was admitted for sepsis and to make further evaluation with IV antibiotic therapy and sepsis protocol pathway that is on this gentleman. DARLIN FRANKLIN MD DR: ZECHARIAH/serenity JOB#: [id number] / [id number]
[2018-09-26] MEDS ORDERED: VANCOMYCIN 2 GM in IV NORMAL SALINE 500ML 500 ML IV ONE (18:00)
[2018-09-26 19:40] VITALS: BP 136/75
[2018-09-26] MEDS ORDERED: CIPROFLOXACIN HCL 500 MG TABLET PO SCH (21:00)
[2018-09-26] MEDS: methylPREDNISolone SOD SUCC PF 40 MG/ML VIAL. IV SCH (21:44)
[2018-09-26] MEDS: ACETAMINOPHEN 325 MG TABLET PO SCH (21:45)
[2018-09-26] MEDS: LACTOBACILLUS RHAMNOSUS GG 1 CAPSULE. PO SCH (21:45)
[2018-09-26] MEDS: IBUPROFEN PO SCH (21:46)
[2018-09-26] MEDS: NON FORMULARY ITEM (Naproxen (Naprosyn) 1 TAB) PO SCH (21:46)
[2018-09-26 22:10] VITALS: BP 127/69
[2018-09-27] MEDS: IV NORMAL SALINE 1,000ML 1,000 ML IV SCH ×3 (02:25→10:18)
[2018-09-27] MEDS: IPRATRPIUM/ALBUTEROL 0.5/2.5MG 3 ML NEBU. NEB SCH ×4 (05:05→20:25)
[2018-09-27 05:19] VITALS: BP 126/86
[2018-09-27] MEDS: VANCOMYCIN 1.75 GM in IV NORMAL SALINE 500ML 500 ML IV SCH ×2 (06:27→18:09)
[2018-09-27] MEDS: methylPREDNISolone SOD SUCC PF 40 MG/ML VIAL. IV SCH ×2 (07:51→20:01)
[2018-09-27] MEDS: ACETAMINOPHEN 325 MG TABLET PO SCH ×3 (07:51→20:02)
[2018-09-27] MEDS: LACTOBACILLUS RHAMNOSUS GG 1 CAPSULE. PO SCH ×2 (07:51→20:02)
[2018-09-27] MEDS: IBUPROFEN PO SCH (07:52)
[2018-09-27] MEDS: DICLOFENAC SODIUM 1% TOPICAL GEL 100GM TUBE. TP SCH ×2 (07:52→15:22)
[2018-09-27] MEDS: NON FORMULARY ITEM (Naproxen (Naprosyn) 1 TAB) PO SCH (07:52)
[2018-09-27 10:50] VITALS: BP 138/71
[2018-09-27] MEDS ORDERED: IOHEXOL 350 MG/ML 100 ML VIAL. IV ONE (12:45)
[2018-09-27] MEDS ORDERED: CONTRAST GIVEN MC PRN (12:45)
--- NOTE | 2018-09-27 14:51 | RAD ---
Examination: CT angiography chest HISTORY: History of shortness of breath, abnormal chest x-ray COMPARISON: None available TECHNIQUE: Axial CT angiographic images of chest were performed with IV contrast. Coronal and sagittal 3-D MIP reformats are performed Exposure: One or more of the following individualized dose reduction techniques were utilized for this examination: 1. Automated exposure control 2. Adjustment of the mA and/or kV according to patient size 3. Use of iterative reconstruction technique FINDINGS: The central airways are patent. Mild cardiomegaly. The caliber of the aorta grossly appears unremarkable. Coronary artery calcifications identified. There is no evidence of filling defect identified in the main pulmonary arterial trunk and right and left main pulmonary arteries. The evaluation of the distal segmental branches of the pulmonary arteries is limited on this examination. Faint groundglass airspace opacity identified in the left apical lung. There are patchy foci of airspace opacities identified in the right middle lobe and right lower lobe of the lung with focal consolidation and air bronchograms in the right lower lobe of the lung. No evidence of pleural effusion or pneumothorax. There is diffuse decreased attenuation noted in the liver likely hepatic steatosis. The visualized spleen, adrenals grossly appears unremarkable. The stomach is mildly distended. Mild degenerative changes thoracic spine. IMPRESSION: 1. Multiple foci of airspace opacities identified in the right middle lobe and right lower lobe of the lung with focal consolidation and air bronchograms identified in the right lower lobe lung likely multifocal pneumonia. Follow-up to resolution. 2. No evidence of central pulmonary embolism. 3. Coronary artery calcifications. 4. Hepatic steatosis. Electronically signed by: Yandel Joe MD (09/27/2018 2:48 PM) [facility]
[2018-09-27] MEDS: BENZONATATE 100 MG CAPSULE. PO SCH ×2 (15:22→20:02)
--- NOTE | 2018-09-27 15:34 | HP ---
ADMIT DATE: 09/27/2018 PAST MEDICAL HISTORY: Tonsillectomy, COPD, diverticulosis with bowel resection. The patient may have diabetes. He has not been formally diagnosed with that in the past, although his blood sugars here have shown an elevation of the glucose. The patient has also refused immunizations and discussed with him and his the importance of especially being if he is diabetic and almost 59 years of age. ALLERGIES: FENOFIBRATE, PENICILLINS were noted as well. MEDICATIONS: Have been evaluated. Home meds, he has been on Cipro, Flexeril, omega 3, diclofenac, ibuprofen, naproxen for some reason and this has been discontinued, hydrocodone, Tylenol, ascorbic acid, and multivitamin. FAMILY HISTORY: Adopted. SOCIAL HISTORY: The patient apparently smokes, obviously encouraged him to stop smoking. The patient otherwise will get a CTA this afternoon. Occasional alcohol use. No hard drug use. REVIEW OF SYSTEMS: The patient denies any headaches, visual change, blurred vision, double vision. Does have a severe cough, has been ill for about a week or more, get progressively worse, although sudden. The patient in turn denies any problem with bowels or bladder. Recommend he had immunizations as well as colonoscopy here. PHYSICAL EXAMINATION: GENERAL: A pleasant white male, somewhat overweight. VITAL SIGNS: Blood pressure 155/73, temperature initially 101.0, respiratory rate 24, pulse 104. HEENT: The patient's head was atraumatic, normocephalic. Eyes: PERRLA without jaundice. Mouth and throat were normal. NECK: Supple. LUNGS: Diminished. Poor movement of air. Rhonchi noted. CARDIOVASCULAR: Regular sinus rhythm, S1, S2, without murmur, rub, thrill, or extra heart sounds. ABDOMEN: The patient's abdomen is soft, nontender, no rebound or guarding. Positive bowel sounds, protuberant. EXTREMITIES: No clubbing, cyanosis or edema. NEUROLOGIC: The patient is alert and oriented x 3. IMPRESSION: Sepsis, hyperglycemia, acute respiratory distress, obesity, elevated lactic acid, elevated BNP, get echocardiogram, continue on IV antibiotic therapy, aggressive pulmonary toilet. He will get a CTA. DARLIN FRANKLIN MD DR: ZECHARIAH/serenity JOB#: [id number] / [id number]
[2018-09-27] MEDS ORDERED: DICLOFENAC SODIUM 1% TOPICAL GEL 100GM TUBE. TP PRN (15:45)
[2018-09-27 15:55] VITALS: BP 148/73
[2018-09-27 19:41] VITALS: BP 160/82
[2018-09-27] MEDS: ZOLPIDEM 5 MG TABLET. PO PRN (20:02)
[2018-09-27] MEDS: guaiFENesin/PS-EPHED 600/60MG 1 TAB TAB.ER.12H PO SCH (20:02)
[2018-09-27] MEDS: NAPROXEN 500 MG TABLET PO SCH (20:02)
[2018-09-27] MEDS: HYDROcodone/CHLORPHEN POLIS 5 ML SUS.ER.12H PO PRN (20:03)
[2018-09-27] MEDS: HEPARIN for SUB-Q USE 5,000 UNIT/ML VIAL. SQ SCH (21:48)
--- NOTE | 2018-09-27 23:17 | PN ---
DATE: 09/27/2018 SUBJECTIVE: The patient is a 58-year-old male admitted with sepsis, probably new onset of diabetes. He is resting fairly comfortably. He says he feels a little better today, but still having no severe cough. OBJECTIVE: Blood pressure 138/70, respiratory rate 18, pulse 70. He has become afebrile from his febrile nature. His lactic acid has come down from 3.9 down to 1.8 and the patient continues to be monitored carefully. Otherwise, the patient is alert and oriented. The patient otherwise will continue to be monitored carefully. Continue on IV antibiotic therapy. IMPRESSION: Sepsis, acute respiratory distress, hyperglycemia, new onset of diabetes. PLAN: We will continue to monitor the patient and accordingly make further evaluation on her as indicated per those results. DARLIN FRANKLIN MD DR: ZECHARIAH/serenity JOB#: [id number] / [id number]
[2018-09-27 23:28] VITALS: BP 124/57
[2018-09-28] MEDS: guaiFENesin DM 200MG/20MG 10 ML SYRUP PO PRN (01:25)
[2018-09-28 03:10] LABS: HEMOGLOBIN A1C 5.6 % (4.8-5.6)
[2018-09-28] MEDS: IPRATRPIUM/ALBUTEROL 0.5/2.5MG 3 ML NEBU. NEB SCH ×4 (04:48→20:18)
[2018-09-28] MEDS: HEPARIN for SUB-Q USE 5,000 UNIT/ML VIAL. SQ SCH ×3 (06:04→21:57)
[2018-09-28 06:20] VITALS: BP 153/83
[2018-09-28 07:03] LABS: VANC TR 7.7 mcg/mL (10.0-20.0)
[2018-09-28 07:04] LABS: ALBUMIN 3.4 g/dL (3.4-5.0); ALBUMIN/GLOBULIN RATIO 0.9 (1.0-1.7); CREATININE 0.8 mg/dL (0.7-1.3); GFR 98.9; POTASSIUM 4.1 mmol/L (3.5-5.1); TOTAL BILIRUBIN 0.2 mg/dL (0.2-1.0); TOTAL PROTEIN 7.3 g/dL (6.4-8.2)
[2018-09-28 07:11] LABS: BASO % 0 % (0-3); EOS % 0 % (0-3); HEMATOCRIT 48.2 % (39.0-53.0); HEMOGLOBIN 16.3 g/dL (13.0-17.5); LYMPH # 0.9 x10^3/uL (1.0-4.8); LYMPH % 4 % (24-48); MEAN CORPUSCULAR HEMOGLOBIN 32 pg (25-35); MEAN CORPUSCULAR HGB CONC 34 g/dL (31-37); MEAN CORPUSCULAR VOLUME 95 fL (79-100); MONO # 0.8 x10^3/uL (0.0-1.1); MONO % 4 % (0-9); NEUT # 19.8 x10^3uL (1.8-7.7); NEUT % 92 % (31-73); PLATELET COUNT 130 x10^3/uL (140-400); RED CELL DISTRIBUTION WIDTH 13.2 % (11.5-14.5); WHITE BLOOD COUNT 21.4 x10^3/uL (4.0-11.0)
[2018-09-28] MEDS: VANCOMYCIN PER PHARMACY MC PRN (07:56)
[2018-09-28] MEDS: VANCOMYCIN 1.75 GM in IV NORMAL SALINE 500ML 500 ML IV SCH ×2 (08:04→16:30)
[2018-09-28] MEDS: methylPREDNISolone SOD SUCC PF 40 MG/ML VIAL. IV SCH ×2 (08:09→20:56)
[2018-09-28] MEDS: ACETAMINOPHEN 325 MG TABLET PO SCH ×3 (08:10→20:56)
[2018-09-28] MEDS: BENZONATATE 100 MG CAPSULE. PO SCH ×3 (08:10→20:56)
[2018-09-28] MEDS: LACTOBACILLUS RHAMNOSUS GG 1 CAPSULE. PO SCH ×2 (08:11→20:56)
[2018-09-28] MEDS: NAPROXEN 500 MG TABLET PO SCH ×2 (08:11→20:56)
[2018-09-28 09:15] LABS: % ATYL 1 % (0-0); % BANDS 10 % (0-9); % LYMPHS 4 % (24-48); % SEGS 85 % (35-66); PLT ESTIMATE DECREASED (ADEQUATE)
[2018-09-28 09:16] LABS: POLYCHROMASIA SLIGHT; TOXIC GRANULATION SLIGHT
[2018-09-28 10:42] LABS: BILIRUBIN,URINE NEG (NEG); CLARITY,URINE CLEAR; COLOR,URINE YELLOW; GLUCOSE,URINE NEG (NEG); NITRITE,URINE NEG (NEG); UROBILINOGEN,URINE 0.2 mg/dL (0.2 mg/dL)
[2018-09-28 10:43] LABS: BACTERIA,URINE FEW /HPF (0-FEW); SQUAMOUS EPITHELIAL CELL,UR OCC /LPF
[2018-09-28 10:44] VITALS: BP 171/89
--- NOTE | 2018-09-28 10:57 | PDOC2 ---
CONSULT Date of Admission DATE: 09/28/18 TIME: 10:57 Reason for Consult: elevated troponin Problem List Problems Medical Problems: (1) Alkaline phosphatase raised Status: Acute (2) COPD exacerbation Status: Acute (3) Dyspnea Status: Acute (4) Elevated blood sugar Status: Acute (5) Fever Status: Acute (6) Hypocalcemia Status: Acute (7) Severe sepsis Status: Acute History of Present Illness Mr Anne is a 58 year old male who presented with complaints of cough and shortness of breath over the last several days. He reports having a "cold " that became progressivly worse over several day. He was admitted for treatment and noted to have an elevated troponin so consult was called. HE denies chest discomfort or pain. He denies any issues with dyspnea or fatigue prior to this illness. He denies palpitations, lightheadedness or syncope,. He is asking about possibly going home. Cardiovascular: No pertinent hx Pulmonary: COPD GI: Diverticulosis Heme/Onc: No pertinent hx Hepatobiliary: No pertinent hx Psych: No pertinent hx Musculoskeletal: No pertinent hx Rheumatologic: No pertinent hx ENT: No pertinent hx Renal/: No pertinent hx Endocrine: No pertinent hx Dermatology: No pertinent hx Past Surgical History bowel resection Family History unknown as he was adopted Social History 1 and 1/2 ppd smoker. drinks about 4 oz of fire ball most days, denies illicit drug use. Current Medications Current Medications Sodium Chloride 1,000 ml @ 1,000 mls/hr Q1H IV Last administered on 09/26/18 13:44; Start 09/26/18 at 13:11; Stop 09/26/18 at 14:10; Status DC Albuterol/ Ipratropium (Duoneb) 3 ml 1X ONCE NEB Last administered on at 13:15; Start 09/26/18 at 13:15; Stop 09/26/18 at 13:16; Status DC Methylprednisolone Sodium Succinate (SOLU-Medrol 125MG VIAL) 125 mg 1X ONCE IV Last administered on 09/26/18at 13:43; Start 09/26/18 at 13:15; Stop 09/26/18 at 13:16; Status DC Ibuprofen (Motrin) 800 mg 1X ONCE PO Last administered on 09/26/18at 13:44; Start 09/26/18 at 13:15; Stop 09/26/18 at 13:16; Status DC Sodium Chloride 1,000 ml @ 1,000 mls/hr 1X ONCE IV Last administered on at 16:04; Start 09/26/18 at 13:45; Stop 09/26/18 at 14:44; Status DC Ceftriaxone Sodium 1 gm/ Sodium Chloride 50 ml @ 100 mls/hr 1X ONCE IV Last administered on 09/26/18at 13:54; Start 09/26/18 at 13:45; Stop 09/27/18 at 11:54; Status DC Sodium Chloride 50 ml @ As Directed STK-MED ONCE .ROUTE ; Start 09/26/18 at 13:52 ; Stop 09/26/18 at 13:53; Status DC Ceftriaxone Sodium (Rocephin) 1 gm STK-MED ONCE .ROUTE ; Start 09/26/18 at 13:52 ; Stop 09/26/18 at 13:53; Status DC Sodium Chloride 1,000 ml @ 1,000 mls/hr 1X ONCE IV Last administered on at 14:30; Start 09/26/18 at 14:30; Stop 09/26/18 at 15:29; Status DC Sodium Chloride 1,000 ml @ 150 mls/hr Q6H40M IV Last administered on 09/27/18at 02:25; Start 09/26/18 at 14:18; Stop 09/27/18 at 14:17; Status DC Sodium Chloride 500 ml @ 0 mls/hr 1X ONCE IV ; Start 09/26/18 at 14:30; Stop 09/26/18 at 14:31; Status DC Acetaminophen (Tylenol) 325 mg TID PO Last administered on 09/27/18at 15:22; Start 09/26/18 at 21:00; Stop 09/27/18 at 15:34; Status DC Diclofenac Sodium (Voltaren) 1 abimael QID TP Last administered on 09/27/18at 15:22; Start 09/26/18 at 17:00; Stop 09/27/18 at 15:34; Status DC Cyclobenzaprine HCl (Flexeril) 10 mg PRN TID PRN PO MUSCLE SPASMS; Start at 15:45 Acetaminophen/ Hydrocodone Bitart (Lortab 5/325) 1 tab PRN Q6HRS PRN PO PAIN; Start 09/26/18 at 15:45 Non-Formulary Medication (Ibuprofen ) 1 tab TID PO ; Start 09/26/18 at 21:00; Stop 09/27/18 at 12:11; Status DC Non-Formulary Medication (Naproxen (Naprosyn)) 1 tab BID PO ; Start 09/26/18 at 21:00; Stop 09/27/18 at 12:21; Status DC Ciprofloxacin (Cipro) 500 mg BID PO ; Start 09/26/18 at 21:00; Status UNV Vancomycin HCl (Vanco Per Pharmacy) 1 each PRN DAILY PRN MC SEE COMMENTS Last administered on 09/28/18at 07:56; Start 09/26/18 at 15:15 Levofloxacin/ Dextrose 150 ml @ 150 mls/hr Q24H IV Last administered on at 17:50; Start 09/26/18 at 16:00 Methylprednisolone Sodium Succinate (SOLU-Medrol 40MG VIAL) 40 mg Q12HR IV Last administered on 09/28/18at 08:09; Start 09/26/18 at 21:00 Albuterol/ Ipratropium (Duoneb) 3 ml RTQID NEB Last administered on 09/28/18at 04 :48; Start 09/26/18 at 16:00 Vancomycin HCl 2 gm/Sodium Chloride 500 ml @ 250 mls/hr 1X ONCE IV Last administered on 09/26/18at 18:40; Start 09/26/18 at 18:00; Stop 09/26/18 at 19:59; Status DC Vancomycin HCl 1.75 gm/Sodium Chloride 500 ml @ 250 mls/hr Q12H IV Last administered on 09/28/18at 08:04; Start 09/27/18 at 06:00; Stop 09/28/18 at 09:00; Status DC Vancomycin HCl (Vancomycin Trough Level) 1 each 1X ONCE MC Last administered on 09/28/18at 06:04; Start 09/28/18 at 05:30; Stop 09/28/18 at 05:31; Status DC Lactobacillus Rhamnosus (Culturelle) 1 cap BID PO Last administered on at 08:11; Start 09/26/18 at 21:00 Diphenhydramine HCl (Benadryl Oral Elixir) 12.5 mg PRN Q6HRS PRN PO ITCHING; Start 09/26/18 at 17:15 Naproxen (Naprosyn) 500 mg BID PO Last administered on 09/28/18 08:11; Start at 12:30 Iohexol (Omnipaque 350 Mg/ml) 100 ml 1X ONCE IV Last administered on 09/27/18 14:01; Start 09/27/18 at 12:45; Stop 09/27/18 at 12:46; Status DC Info (Do NOT chart on this entry -- for MONITORING) 1 each PRN DAILY PRN MC SEE COMMENTS; Start 09/27/18 at 12:45; Stop 09/29/18 at 12:44 Zolpidem Tartrate (Ambien) 5 mg PRN QHS PRN PO INSOMNIA, MAY REPEAT IN 1HR Last administered on 09/27/18 20:02; Start 09/27/18 at 14:15 Benzonatate (Tessalon Perle) 200 mg [id number] PO Last administered on 09/28/18 08: 10; Start 09/27/18 at 15:00 Guaifenesin (Mucinex D Er 600-60 Mg) 1 tab BID PO Last administered on 20:02; Start 09/27/18 at 21:00 Heparin Sodium (Porcine) (Heparin Sodium) 5,000 unit Q8HRS SQ Last administered on 09/28/18at 06:04; Start 09/27/18 at 22:00 Acetaminophen (Tylenol) 650 mg TID PO Last administered on 09/28/18 08:10; Start 09/27/18 at 21:00 Diclofenac Sodium (Voltaren) 1 abimael PRN QID PRN TP pain; Start 09/27/18 at 15:45 Guaifenesin (Robitussin Dm) 10 ml PRN Q6HRS PRN PO COUGH Last administered on 01:25; Start 09/27/18 at 19:30 Chlorphenir/ Hydrocodone Polistirex (Tussionex) 5 ml PRN Q12HR PRN PO COUGH Last administered on 09/27/18 20:03; Start 09/27/18 at 19:30 Vancomycin HCl 1.75 gm/Sodium Chloride 500 ml @ 250 mls/hr Q8H IV ; Start at 16:00 Vancomycin HCl (Vancomycin Trough Level) 1 each 1X ONCE MC ; Start 09/29/18 at 07:30; Stop 09/29/18 at 07:31 Active Scripts Active Ibuprofen 800 Mg Tablet 1 Tab PO TID [place] 5-325 Tablet (Hydrocodone Bit/Acetaminophen) 1 Each Tablet 1 Tab PO PRN Q6HRS PRN 14 Days Naprosyn (Naproxen) 500 Mg Tablet 1 Tab PO BID Voltaren (Diclofenac Sodium) 100 Gm Gel..gram. 1 Gm TP QID Cyclobenzaprine Hcl 10 Mg Tablet 1 Tab PO TID PRN 3 Days Reported Tylenol (Acetaminophen) 325 Mg Tablet 325 Mg PO Multi Vitamin Daily (Multivitamin) 1 Each Tablet 1 Each PO Vitamin C (Ascorbic Acid) 100 Mg Tablet 100 Mg PO Fish Oil (Bellwood-3 Fatty Acids) 300 Mg Capsule 300 Mg PO Zyrtec (Cetirizine Hcl) 10 Mg Capsule 10 Mg PO Cipro (Ciprofloxacin Hcl) 250 Mg Tablet 250 Mg PO Allergies: Coded Allergies: Fenofibrate Nanocrystallized (Verified Allergy, Intermediate, 09/26/18) Penicillins (Verified Allergy, Intermediate, 09/26/18) fenofibrate,micronized (Verified Allergy, Intermediate, 09/26/18) Review of System as per HPI or negative General: Alert, Oriented X3, Cooperative, No acute distress HEENT: Atraumatic, EOMI Lungs: Other (decreased bilaterally right greater than left) Heart: Normal S1, Normal S2, No murmurs Abdomen: Normal bowel sounds, Soft, No tenderness Extremities: No cyanosis, No edema, Normal pulses Neuro: Normal speech, Strength at 5/5 X4 ext Psych/Mental Status: Mental status NL, Mood NL VITALS Vital Signs Date Time Temp Pulse Resp B/P (MAP) Pulse Ox O2 Delivery O2 Flow Rate FiO2 09/28/18 10:44 98.1 80 20 171/89 (116) 93 Nasal Cannula 3.0 Labs Laboratory Tests Test 09/26/18 13:00 09/26/18 16:30 09/27/18 12:58 09/28/18 06:10 White Blood Count 13.0 x10^3/uL (4.0-11.0) 21.4 x10^3/uL (4.0-11.0) Red Blood Count 5.31 x10^6/uL (4.30-5.70) 5.10 x10^6/uL (4.30-5.70) Hemoglobin 17.1 g/dL (13.0-17.5) 16.3 g/dL (13.0-17.5) Hematocrit 49.3 % (39.0-53.0) 48.2 % (39.0-53.0) Mean Corpuscular Volume 93 fL (79-100) 95 fL (79-100) Mean Corpuscular Hemoglobin 32 pg (25-35) 32 pg (25-35) Mean Corpuscular Hemoglobin Concent 35 g/dL (31-37) 34 g/dL (31-37) Red Cell Distribution Width 12.8 % (11.5-14.5) 13.2 % (11.5-14.5) Platelet Count 141 x10^3/uL (140-400) 130 x10^3/uL (140-400) Neutrophils (%) (Auto) 90 % (31-73) 92 % (31-73) Lymphocytes (%) (Auto) 5 % (24-48) 4 % (24-48) Monocytes (%) (Auto) 4 % (0-9) 4 % (0-9) Eosinophils (%) (Auto) 0 % (0-3) 0 % (0-3) Basophils (%) (Auto) 1 % (0-3) 0 % (0-3) Neutrophils # (Auto) 11.7 x10^3uL (1.8-7.7) 19.8 x10^3uL (1.8-7.7) Lymphocytes # (Auto) 0.6 x10^3/uL (1.0-4.8) 0.9 x10^3/uL (1.0-4.8) Monocytes # (Auto) 0.5 x10^3/uL (0.0-1.1) 0.8 x10^3/uL (0.0-1.1) Eosinophils # (Auto) 0.0 x10^3/uL (0.0-0.7) 0.0 x10^3/uL (0.0-0.7) Basophils # (Auto) 0.1 x10^3/uL (0.0-0.2) 0.0 x10^3/uL (0.0-0.2) Sodium Level 135 mmol/L (136-145) 140 mmol/L (136-145) Potassium Level 3.7 mmol/L (3.5-5.1) 4.1 mmol/L (3.5-5.1) Chloride Level 100 mmol/L (98-107) 105 mmol/L (98-107) Carbon Dioxide Level 22 mmol/L (21-32) 23 mmol/L (21-32) Anion Gap 13 (6-14) 12 (6-14) Blood Urea Nitrogen 7 mg/dL (8-26) 8 mg/dL (8-26) Creatinine 1.2 mg/dL (0.7-1.3) 0.8 mg/dL (0.7-1.3) Estimated GFR (Cockcroft-Gault) 62.0 98.9 BUN/Creatinine Ratio 6 (6-20) 10 (6-20) Glucose Level 208 mg/dL (70-99) 178 mg/dL (70-99) Lactic Acid Level 3.9 mmol/L (0.4-2.0) 1.8 mmol/L (0.4-2.0) Calcium Level 7.7 mg/dL (8.5-10.1) 8.0 mg/dL (8.5-10.1) Total Bilirubin 0.5 mg/dL (0.2-1.0) 0.2 mg/dL (0.2-1.0) Aspartate Amino Transf (AST/SGOT) 30 U/L (15-37) 44 U/L (15-37) Alanine Aminotransferase (ALT/SGPT) 45 U/L (16-63) 66 U/L (16-63) Alkaline Phosphatase 131 U/L (46-116) 105 U/L (46-116) QM-Gaz-Z-Type Natriuretic Peptide 266 pg/mL (0-124) Total Protein 7.2 g/dL (6.4-8.2) 7.3 g/dL (6.4-8.2) Albumin 3.7 g/dL (3.4-5.0) 3.4 g/dL (3.4-5.0) Albumin/Globulin Ratio 1.1 (1.0-1.7) 0.9 (1.0-1.7) Procalcitonin < 0.10 ng/mL (0.00-0.10) 0.28 ng/mL (0.00-0.10) Influenza Type A (Rapid) Negative (NEGATIVE) Influenza Type B (Rapid) Negative (NEGATIVE) D-Dimer (Debora) 0.66 mg/L (0.00-0.50) Hemoglobin A1c 5.6 % (4.8-5.6) Creatine Kinase 344 U/L (39-308) Troponin I Quantitative 0.202 ng/mL (0-0.055) 0.503 ng/mL (0-0.055) Segmented Neutrophils % 85 % (35-66) Band Neutrophils % 10 % (0-9) Lymphocytes % 4 % (24-48) Atypical Lymphocytes % (Manual) 1 % (0-0) Toxic Granulation Slight Platelet Estimate Decreased (ADEQUATE) Large Platelets Occ Polychromasia Slight Vancomycin Level Trough 7.7 mcg/mL (10.0-20.0) Vancomycin Last Dose Date 09/27/2018 Vancomycin Last Dose Time 1800 Test 09/28/18 10:05 Urine Collection Type Void Urine Color Yellow Urine Clarity Clear Urine pH 6.5 Urine Specific Chrisman 1.025 Urine Protein Neg (NEG-TRACE) Urine Glucose (UA) Neg mg/dL (NEG) Urine Ketones (Stick) Neg mg/dL (NEG) Urine Blood Neg (NEG) Urine Nitrite Neg (NEG) Urine Bilirubin Neg (NEG) Urine Urobilinogen Dipstick 0.2 mg/dL (0.2 mg/dL) Urine Leukocyte Esterase Neg (NEG) Urine RBC 1-2 /HPF (0-2) Urine WBC 1-4 /HPF (0-4) Urine Squamous Epithelial Cells Occ /LPF Urine Bacteria Few /HPF (0-FEW) Urine Mucus Slight /LPF Assessment/Plan 1. NSTEMI - type 2. check echo, check lipids, start aspirin and beta nazario. plan for outpatient MPI when pneumonia resolved. 2. Pneumonia - mgmt per PCP 3. diabetes - per PCP 4. tobaccoism - cessation encouraged. PRATIK DUTTON APRN Sep 28, 2018 10:57
[2018-09-28 14:59] VITALS: BP 165/79
[2018-09-28] MEDS: guaiFENesin/PS-EPHED 600/60MG 1 TAB TAB.ER.12H PO SCH ×2 (15:01→20:58)
--- NOTE | 2018-09-28 15:29 | CARD ---
MR#: [id number] Date of Study: 09/28/2018 Ordering Physician: DARLIN FRANKLIN, Referring Physician: DARLIN FRANKLIN, Tech: Ana Maria Prieto YUE APPROVED REPORT EXAM: Two-dimensional and M-mode echocardiogram with Doppler and color Doppler. Other Information Quality : Fair INDICATION Sepsis 2D DIMENSIONS RVDd3.2 (2.9-3.5cm)Left Atrium(2D)5.1 (1.6-4.0cm) IVSd1.4 (0.7-1.1cm)Aortic Root(2D)3.1 (2.0-3.7cm) LVDd5.5 (3.9-5.9cm)LVOT Diameter2.3 (1.8-2.4cm) PWd1.5 (0.7-1.1cm)LVDs3.6 (2.5-4.0cm) FS (%) 34.8 %SV91.9 ml LVEF(%)60.0 (>50%) Aortic Valve AoV Peak Julius.113.6cm/sAoV VTI22.5cm AO Peak GR.5.2mmHgLVOT Peak Julius.93.5cm/s LVOT VTI 21.37cmAO Mean GR.3mmHg DANTE (VMAX)3.22tz2EVK (VTI)3.99cm2 Mitral Valve MV E Bxvrebie13.5cm/sMV DECEL TOKR400gt MV A Orpwuntr45.9cm/sE/A Ratio1.3 Tricuspid Valve TR P. Hafahfpf420xe/sRAP [id number] TR Peak Gr.50vuIuTSXT13ncCg Pulmonary Vein S1 Gpnkbzph03.4cm/sD2 Aextesiv95.5cm/s LEFT VENTRICLE The left ventricle is normal size. There is mild concentric left ventricular hypertrophy. The left ve ntricular systolic function is normal and the ejection fraction is within normal range. The Ejection Fraction is 55-60%. There is normal LV segmental wall motion. Transmitral Doppler flow pattern is Gra de II-pseudonormal filling dynamics. RIGHT VENTRICLE The right ventricle is normal size. The right ventricular systolic function is normal. ATRIA The left atrium is moderately dilated. The right atrium is mildly dilated. The interatrial septum is intact with no evidence for an atrial septal defect or patent foramen ovale as noted on 2-D or Dopple r imaging. AORTIC VALVE The aortic valve is calcified but opens well. Doppler and Color Flow revealed no significant aortic r egurgitation. There is no significant aortic valvular stenosis. MITRAL VALVE The mitral valve is calcified but opens well. There is no evidence of mitral valve prolapse. There is no mitral valve stenosis. Doppler and Color-flow revealed mild mitral regurgitation. TRICUSPID VALVE The tricuspid valve is normal in structure and function. Doppler and Color Flow revealed trace to mil d tricuspid regurgitation. The PA pressure was estimated at 51 mmHg. There is no tricuspid valve sten osis. PULMONIC VALVE The pulmonic valve is not well visualized. Doppler and Color Flow revealed no pulmonic valvular regur gitation. There is no pulmonic valvular stenosis. GREAT VESSELS The aortic root is normal in size. The ascending aorta is normal in size. The IVC is normal in size a nd collapses >50% with inspiration. PERICARDIAL EFFUSION There is no evidence of significant pericardial effusion. Critical Notification Critical Value: No <Conclusion> The left ventricular systolic function is normal and the ejection fraction is within normal range. Th e Ejection Fraction is 55-60%. There is normal LV segmental wall motion. Doppler and Color Flow revealed trace to mild tricuspid regurgitation. The PA pressure was estimated at 51 mmHg. Signed by : Curry Reyna, Electronically Approved : 09/28/2018 15:28:42
[2018-09-28 19:28] VITALS: BP 180/84
[2018-09-28 19:58] VITALS: BP 172/82
[2018-09-28] MEDS: ZOLPIDEM 5 MG TABLET. PO PRN (20:56)
[2018-09-28] MEDS: HYDROcodone/CHLORPHEN POLIS 5 ML SUS.ER.12H PO PRN (20:56)
[2018-09-28 22:43] VITALS: BP 164/86
[2018-09-29] VITALS (7 sets, daily range): BP systolic 164–176; BP diastolic 72–95
[2018-09-29] MEDS: VANCOMYCIN 1.75 GM in IV NORMAL SALINE 500ML 500 ML IV SCH ×3 (00:09→17:24)
[2018-09-29] MEDS: guaiFENesin DM 200MG/20MG 10 ML SYRUP PO PRN (00:16)
[2018-09-29] MEDS: HEPARIN for SUB-Q USE 5,000 UNIT/ML VIAL. SQ SCH ×3 (05:21→22:51)
[2018-09-29] MEDS ORDERED: amLODIPine BESYLATE 5 MG TABLET PO ONE (05:30)
[2018-09-29] MEDS: IPRATRPIUM/ALBUTEROL 0.5/2.5MG 3 ML NEBU. NEB SCH ×4 (05:37→20:42)
[2018-09-29 07:57] LABS: BASO % 0 % (0-3); EOS % 0 % (0-3); HEMATOCRIT 46.3 % (39.0-53.0); HEMOGLOBIN 15.9 g/dL (13.0-17.5); LYMPH # 0.8 x10^3/uL (1.0-4.8); LYMPH % 5 % (24-48); MEAN CORPUSCULAR HEMOGLOBIN 32 pg (25-35); MEAN CORPUSCULAR HGB CONC 34 g/dL (31-37); MEAN CORPUSCULAR VOLUME 93 fL (79-100); MONO # 0.6 x10^3/uL (0.0-1.1); MONO % 4 % (0-9); NEUT # 14.1 x10^3uL (1.8-7.7); NEUT % 91 % (31-73); PLATELET COUNT 129 x10^3/uL (140-400); RED BLOOD COUNT 4.98 x10^6/uL (4.30-5.70); RED CELL DISTRIBUTION WIDTH 12.9 % (11.5-14.5); WHITE BLOOD COUNT 15.5 x10^3/uL (4.0-11.0)
[2018-09-29 08:09] LABS: CREATININE 0.8 mg/dL (0.7-1.3); GFR 98.9; POTASSIUM 4.1 mmol/L (3.5-5.1)
[2018-09-29] MEDS: guaiFENesin/PS-EPHED 600/60MG 1 TAB TAB.ER.12H PO SCH (08:30)
[2018-09-29] MEDS: NAPROXEN 500 MG TABLET PO SCH ×2 (08:30→21:32)
[2018-09-29] MEDS: ACETAMINOPHEN 325 MG TABLET PO SCH ×3 (08:30→21:31)
[2018-09-29] MEDS: BENZONATATE 100 MG CAPSULE. PO SCH ×3 (08:30→21:32)
[2018-09-29] MEDS: LACTOBACILLUS RHAMNOSUS GG 1 CAPSULE. PO SCH ×2 (08:31→21:31)
[2018-09-29] MEDS: methylPREDNISolone SOD SUCC PF 40 MG/ML VIAL. IV SCH ×2 (08:33→21:31)
[2018-09-29] MEDS: VANCOMYCIN PER PHARMACY MC PRN (08:42)
--- NOTE | 2018-09-29 13:49 | PDOC ---
PRATIK DUTTON SEEING EYE DOG TRAINER 09/29/18 1349: PROGRESS NOTES Diagnosis Problem Problems Medical Problems: (1) Alkaline phosphatase raised Status: Acute (2) COPD exacerbation Status: Acute (3) Dyspnea Status: Acute (4) Elevated blood sugar Status: Acute (5) Fever Status: Acute (6) Hypocalcemia Status: Acute (7) Severe sepsis Status: Acute Assessment Problems Medical Problems: (1) Alkaline phosphatase raised Status: Acute (2) COPD exacerbation Status: Acute (3) Dyspnea Status: Acute (4) Elevated blood sugar Status: Acute (5) Fever Status: Acute (6) Hypocalcemia Status: Acute (7) Severe sepsis Status: Acute 1. NSTEMI - type 2. normal EF and wall motion by echo. lipids pending. Continue aspirin and beta nazario. plan for outpatient MPI when pneumonia resolved. 2. hypertension - add beta nazario, consider addition of ACEI if pressure remains elevated. 3. PHTN - PAS 51 mmHg by echo. suggest outpatient PFTs and sleep study 4. Pneumonia - mgmt per PCP 5. diabetes - per PCP 6. tobaccoism - cessation encouraged. Subjective no new complaints Objective Vital Signs Date Time Temp Pulse Resp B/P (MAP) Pulse Ox O2 Delivery O2 Flow Rate FiO2 09/29/18 11:28 97.6 81 22 165/86 (112) 91 Nasal Cannula 09/29/18 10:10 2.0 Intake and Output 09/29/18 07:00 Intake Total 2230 ml Balance 2230 ml Intake Oral 1080 ml IV Total 1150 ml # Voids 7 Review of Relevant I have reviewed the following items magy (where applicable) has been applied. Labs Laboratory Tests Test 09/28/18 06:10 09/28/18 10:05 09/29/18 07:23 White Blood Count 21.4 x10^3/uL (4.0-11.0) 15.5 x10^3/uL (4.0-11.0) Red Blood Count 5.10 x10^6/uL (4.30-5.70) 4.98 x10^6/uL (4.30-5.70) Hemoglobin 16.3 g/dL (13.0-17.5) 15.9 g/dL (13.0-17.5) Hematocrit 48.2 % (39.0-53.0) 46.3 % (39.0-53.0) Mean Corpuscular Volume 95 fL (79-100) 93 fL (79-100) Mean Corpuscular Hemoglobin 32 pg (25-35) 32 pg (25-35) Mean Corpuscular Hemoglobin Concent 34 g/dL (31-37) 34 g/dL (31-37) Red Cell Distribution Width 13.2 % (11.5-14.5) 12.9 % (11.5-14.5) Platelet Count 130 x10^3/uL (140-400) 129 x10^3/uL (140-400) Neutrophils (%) (Auto) 92 % (31-73) 91 % (31-73) Lymphocytes (%) (Auto) 4 % (24-48) 5 % (24-48) Monocytes (%) (Auto) 4 % (0-9) 4 % (0-9) Eosinophils (%) (Auto) 0 % (0-3) 0 % (0-3) Basophils (%) (Auto) 0 % (0-3) 0 % (0-3) Neutrophils # (Auto) 19.8 x10^3uL (1.8-7.7) 14.1 x10^3uL (1.8-7.7) Lymphocytes # (Auto) 0.9 x10^3/uL (1.0-4.8) 0.8 x10^3/uL (1.0-4.8) Monocytes # (Auto) 0.8 x10^3/uL (0.0-1.1) 0.6 x10^3/uL (0.0-1.1) Eosinophils # (Auto) 0.0 x10^3/uL (0.0-0.7) 0.0 x10^3/uL (0.0-0.7) Basophils # (Auto) 0.0 x10^3/uL (0.0-0.2) 0.0 x10^3/uL (0.0-0.2) Segmented Neutrophils % 85 % (35-66) Band Neutrophils % 10 % (0-9) Lymphocytes % 4 % (24-48) Atypical Lymphocytes % (Manual) 1 % (0-0) Toxic Granulation Slight Platelet Estimate Decreased (ADEQUATE) Large Platelets Occ Polychromasia Slight Sodium Level 140 mmol/L (136-145) 139 mmol/L (136-145) Potassium Level 4.1 mmol/L (3.5-5.1) 4.1 mmol/L (3.5-5.1) Chloride Level 105 mmol/L (98-107) 103 mmol/L (98-107) Carbon Dioxide Level 23 mmol/L (21-32) 26 mmol/L (21-32) Anion Gap 12 (6-14) 10 (6-14) Blood Urea Nitrogen 8 mg/dL (8-26) 9 mg/dL (8-26) Creatinine 0.8 mg/dL (0.7-1.3) 0.8 mg/dL (0.7-1.3) Estimated GFR (Cockcroft-Gault) 98.9 98.9 BUN/Creatinine Ratio 10 (6-20) Glucose Level 178 mg/dL (70-99) 172 mg/dL (70-99) Calcium Level 8.0 mg/dL (8.5-10.1) 8.0 mg/dL (8.5-10.1) Total Bilirubin 0.2 mg/dL (0.2-1.0) Aspartate Amino Transf (AST/SGOT) 44 U/L (15-37) Alanine Aminotransferase (ALT/SGPT) 66 U/L (16-63) Alkaline Phosphatase 105 U/L (46-116) Troponin I Quantitative 0.503 ng/mL (0-0.055) Total Protein 7.3 g/dL (6.4-8.2) Albumin 3.4 g/dL (3.4-5.0) Albumin/Globulin Ratio 0.9 (1.0-1.7) Procalcitonin 0.46 ng/mL (0.00-0.10) Vancomycin Level Trough 7.7 mcg/mL (10.0-20.0) 12.0 mcg/mL (10.0-20.0) Vancomycin Last Dose Date 09/27/2018 09/29/2018 Vancomycin Last Dose Time 1800 0000 Urine Collection Type Void Urine Color Yellow Urine Clarity Clear Urine pH 6.5 Urine Specific [place] 1.025 Urine Protein Neg (NEG-TRACE) Urine Glucose (UA) Neg mg/dL (NEG) Urine Ketones (Stick) Neg mg/dL (NEG) Urine Blood Neg (NEG) Urine Nitrite Neg (NEG) Urine Bilirubin Neg (NEG) Urine Urobilinogen Dipstick 0.2 mg/dL (0.2 mg/dL) Urine Leukocyte Esterase Neg (NEG) Urine RBC 1-2 /HPF (0-2) Urine WBC 1-4 /HPF (0-4) Urine Squamous Epithelial Cells Occ /LPF Urine Bacteria Few /HPF (0-FEW) Urine Mucus Slight /LPF Microbiology 09/26/18 Blood Culture - Preliminary, Resulted NO GROWTH AFTER 2 DAYS... Medications Current Medications Sodium Chloride 1,000 ml @ 1,000 mls/hr Q1H IV Last administered on 09/26/18 13:44; Start 09/26/18 at 13:11; Stop 09/26/18 at 14:10; Status DC Albuterol/ Ipratropium (Duoneb) 3 ml 1X ONCE NEB Last administered on 13:15; Start 09/26/18 at 13:15; Stop 09/26/18 at 13:16; Status DC Methylprednisolone Sodium Succinate (SOLU-Medrol 125MG VIAL) 125 mg 1X ONCE IV Last administered on 09/26/18 13:43; Start 09/26/18 at 13:15; Stop 09/26/18 at 13:16; Status DC Ibuprofen (Motrin) 800 mg 1X ONCE PO Last administered on 09/26/18 13:44; Start 09/26/18 at 13:15; Stop 09/26/18 at 13:16; Status DC Sodium Chloride 1,000 ml @ 1,000 mls/hr 1X ONCE IV Last administered on 16:04; Start 09/26/18 at 13:45; Stop 09/26/18 at 14:44; Status DC Ceftriaxone Sodium 1 gm/ Sodium Chloride 50 ml @ 100 mls/hr 1X ONCE IV Last administered on 09/26/18 13:54; Start 09/26/18 at 13:45; Stop 09/27/18 at 11:54; Status DC Sodium Chloride 50 ml @ As Directed STK-MED ONCE .ROUTE ; Start 09/26/18 at 13:52 ; Stop 09/26/18 at 13:53; Status DC Ceftriaxone Sodium (Rocephin) 1 gm STK-MED ONCE .ROUTE ; Start 09/26/18 at 13:52 ; Stop 09/26/18 at 13:53; Status DC Sodium Chloride 1,000 ml @ 1,000 mls/hr 1X ONCE IV Last administered on 14:30; Start 09/26/18 at 14:30; Stop 09/26/18 at 15:29; Status DC Sodium Chloride 1,000 ml @ 150 mls/hr Q6H40M IV Last administered on 09/27/18at 02:25; Start 09/26/18 at 14:18; Stop 09/27/18 at 14:17; Status DC Sodium Chloride 500 ml @ 0 mls/hr 1X ONCE IV ; Start 09/26/18 at 14:30; Stop 09/26/18 at 14:31; Status DC Acetaminophen (Tylenol) 325 mg TID PO Last administered on 09/27/18 15:22; Start 09/26/18 at 21:00; Stop 09/27/18 at 15:34; Status DC Diclofenac Sodium (Voltaren) 1 abimael QID TP Last administered on 09/27/18 15:22; Start 09/26/18 at 17:00; Stop 09/27/18 at 15:34; Status DC Cyclobenzaprine HCl (Flexeril) 10 mg PRN TID PRN PO MUSCLE SPASMS; Start at 15:45 Acetaminophen/ Hydrocodone Bitart (Lortab 5/325) 1 tab PRN Q6HRS PRN PO PAIN; Start 09/26/18 at 15:45 Non-Formulary Medication (Ibuprofen ) 1 tab TID PO ; Start 09/26/18 at 21:00; Stop 09/27/18 at 12:11; Status DC Non-Formulary Medication (Naproxen (Naprosyn)) 1 tab BID PO ; Start 09/26/18 at 21:00; Stop 09/27/18 at 12:21; Status DC Ciprofloxacin (Cipro) 500 mg BID PO ; Start 09/26/18 at 21:00; Status UNV Vancomycin HCl (Vanco Per Pharmacy) 1 each PRN DAILY PRN MC SEE COMMENTS Last administered on 09/29/18at 08:42; Start 09/26/18 at 15:15 Levofloxacin/ Dextrose 150 ml @ 150 mls/hr Q24H IV Last administered on at 16:23; Start 09/26/18 at 16:00 Methylprednisolone Sodium Succinate (SOLU-Medrol 40MG VIAL) 40 mg Q12HR IV Last administered on 09/29/18 08:33; Start 09/26/18 at 21:00 Albuterol/ Ipratropium (Duoneb) 3 ml RTQID NEB Last administered on 09/29/18 10 :10; Start 09/26/18 at 16:00 Vancomycin HCl 2 gm/Sodium Chloride 500 ml @ 250 mls/hr 1X ONCE IV Last administered on 09/26/18 18:40; Start 09/26/18 at 18:00; Stop 09/26/18 at 19:59; Status DC Vancomycin HCl 1.75 gm/Sodium Chloride 500 ml @ 250 mls/hr Q12H IV Last administered on 09/28/18 08:04; Start 09/27/18 at 06:00; Stop 09/28/18 at 09:00; Status DC Vancomycin HCl (Vancomycin Trough Level) 1 each 1X ONCE MC Last administered on 09/28/18 06:04; Start 09/28/18 at 05:30; Stop 09/28/18 at 05:31; Status DC Lactobacillus Rhamnosus (Culturelle) 1 cap BID PO Last administered on 08:31; Start 09/26/18 at 21:00 Diphenhydramine HCl (Benadryl Oral Elixir) 12.5 mg PRN Q6HRS PRN PO ITCHING; Start 09/26/18 at 17:15 Naproxen (Naprosyn) 500 mg BID PO Last administered on 09/29/18 08:30; Start at 12:30 Iohexol (Omnipaque 350 Mg/ml) 100 ml 1X ONCE IV Last administered on 09/27/18 14:01; Start 09/27/18 at 12:45; Stop 09/27/18 at 12:46; Status DC Info (Do NOT chart on this entry -- for MONITORING) 1 each PRN DAILY PRN MC SEE COMMENTS; Start 09/27/18 at 12:45; Stop 09/29/18 at 12:44; Status DC Zolpidem Tartrate (Ambien) 5 mg PRN QHS PRN PO INSOMNIA, MAY REPEAT IN 1HR Last administered on 09/28/18 20:56; Start 09/27/18 at 14:15 Benzonatate (Tessalon Perle) 200 mg [id number] PO Last administered on 09/29/18 08: 30; Start 09/27/18 at 15:00 Guaifenesin (Mucinex D Er 600-60 Mg) 1 tab BID PO Last administered on 08:30; Start 09/27/18 at 21:00; Stop 09/29/18 at 10:03; Status DC Heparin Sodium (Porcine) (Heparin Sodium) 5,000 unit Q8HRS SQ Last administered on 09/29/18 05:21; Start 09/27/18 at 22:00 Acetaminophen (Tylenol) 650 mg TID PO Last administered on 09/29/18 08:30; Start 09/27/18 at 21:00 Diclofenac Sodium (Voltaren) 1 abimael PRN QID PRN TP pain Last administered on 09/29 08:28; Start 09/27/18 at 15:45 Guaifenesin (Robitussin Dm) 10 ml PRN Q6HRS PRN PO COUGH Last administered on 00:16; Start 09/27/18 at 19:30 Chlorphenir/ Hydrocodone Polistirex (Tussionex) 5 ml PRN Q12HR PRN PO COUGH Last administered on 09/28/18 20:56; Start 09/27/18 at 19:30 Vancomycin HCl 1.75 gm/Sodium Chloride 500 ml @ 250 mls/hr Q8H IV Last administered on 09/29/18 08:28; Start 09/28/18 at 16:00 Vancomycin HCl (Vancomycin Trough Level) 1 each 1X ONCE MC Last administered on 09/29/18 07:30; Start 09/29/18 at 07:30; Stop 09/29/18 at 07:31; Status DC Amlodipine Besylate (Norvasc) 10 mg 1X ONCE PO Last administered on 09/29/18 05:18; Start 09/29/18 at 05:30; Stop 09/29/18 at 05:31; Status DC Guaifenesin (Mucinex D Er 600-60 Mg) 1 tab DAILY PO ; Start 09/30/18 at 09:00 Active Scripts Active Ibuprofen 800 Mg Tablet 1 Tab PO TID [place] 5-325 Tablet (Hydrocodone Bit/Acetaminophen) 1 Each Tablet 1 Tab PO PRN Q6HRS PRN 14 Days Naprosyn (Naproxen) 500 Mg Tablet 1 Tab PO BID Voltaren (Diclofenac Sodium) 100 Gm Gel..gram. 1 Gm TP QID Cyclobenzaprine Hcl 10 Mg Tablet 1 Tab PO TID PRN 3 Days Reported Tylenol (Acetaminophen) 325 Mg Tablet 325 Mg PO Multi Vitamin Daily (Multivitamin) 1 Each Tablet 1 Each PO Vitamin C (Ascorbic Acid) 100 Mg Tablet 100 Mg PO Fish Oil (Spruce-3 Fatty Acids) 300 Mg Capsule 300 Mg PO Zyrtec (Cetirizine Hcl) 10 Mg Capsule 10 Mg PO Cipro (Ciprofloxacin Hcl) 250 Mg Tablet 250 Mg PO Vitals/I & O Vital Sign - Last 24 Hours 09/28/18 09/28/18 09/28/18 09/28/18 14:59 16:34 19:20 19:28 Temp 97.8 98.4 Pulse 72 63 Resp 22 24 B/P (MAP) 165/79 (107) 180/84 (116) Pulse Ox 93 99 94 O2 Delivery Nasal Cannula Room Air Nasal Cannula Nasal Cannula O2 Flow Rate 2.0 2.0 2.0 09/28/18 09/28/18 09/28/18 09/29/18 19:58 20:19 22:43 05:18 Temp 97.9 Pulse 78 67 Resp 24 B/P (MAP) 172/82 (112) 164/86 (112) 176/95 Pulse Ox 98 93 O2 Delivery Room Air Nasal Cannula O2 Flow Rate 2.0 09/29/18 09/29/18 09/29/18 09/29/18 05:34 05:38 06:00 08:00 Temp 97.7 Pulse 84 Resp 24 B/P (MAP) 170/74 (106) 173/72 (105) Pulse Ox 92 97 O2 Delivery Nasal Cannula Room Air Room Air O2 Flow Rate 2.0 09/29/18 09/29/18 09/29/18 08:25 10:10 11:28 Temp 97.6 Pulse 77 81 Resp 22 B/P (MAP) 165/84 (111) 165/86 (112) Pulse Ox 94 91 O2 Delivery Nasal Cannula Nasal Cannula O2 Flow Rate 2.0 Intake and Output 09/28/18 09/28/1819 15:00 23:00 07:00 Intake Total 600 ml 1010 ml 620 ml Balance 600 ml 1010 ml 620 ml MEY SCOTT MD 09/29/182020: PROGRESS NOTES Assessment Patient seen and examined. Agree with MEDICAL RECEPTIONIST's assessment and plan. NSTEMI most probably type 2/demand ischemia 2D echo showed normal LVF without any WMA Plan outpatient ischemic evaluation with stress test Continue current treatment for pneumonia PRATIK DUTTON APRN Sep 29, 2018 13:49 MEY SCOTT MD Sep 29, 2018 20:21
[2018-09-29] MEDS: HYDROcodone/CHLORPHEN POLIS 5 ML SUS.ER.12H PO PRN (21:31)
[2018-09-29] MEDS: ZOLPIDEM 5 MG TABLET. PO PRN (21:31)
[2018-09-29] MEDS: METOPROLOL TART IMMED RELEASE 25 MG TABLET PO SCH (21:31)
--- NOTE | 2018-09-29 22:24 | PN ---
DATE: SUBJECTIVE: A 58-year-old male in with sepsis, pneumonia, possible non-STEMI. The patient is resting fairly comfortably, feeling a little bit stronger every day. PHYSICAL EXAMINATION: VITAL SIGNS: Blood pressure 168/90, respiratory rate 20, pulse 77, afebrile. GENERAL: The patient is alert and oriented. LUNGS: Diminished, but markedly improved from where they were. The patient has elevated liver enzymes. His procalcitonin was elevated. The patient has been seen by Cardiology. Recommend MPI as an outpatient. His echocardiogram was basically stable. Blood sugars still on the high side, although his A1c was only 5.6, may be related to the infection and steroids. Otherwise, continue to be monitored carefully. IMPRESSION: Therefore, sepsis, multilobar pneumonia, type 2 diabetes new onset, non-STEMI type 2. PLAN: Continue to monitor the patient on IV antibiotic therapy, aggressive pulmonary toilet, smoking cessation and monitoring his diet. DARLIN FRANKLIN MD DR: ZECHARIAH/[facility]renity JOB#: [id number] / [id number]
[2018-09-30] MEDS: VANCOMYCIN 1.75 GM in IV NORMAL SALINE 500ML 500 ML IV SCH ×2 (00:45→08:40)
[2018-09-30] MEDS: guaiFENesin DM 200MG/20MG 10 ML SYRUP PO PRN (00:54)
[2018-09-30 05:05] VITALS: BP 165/89
[2018-09-30] MEDS: IPRATRPIUM/ALBUTEROL 0.5/2.5MG 3 ML NEBU. NEB SCH ×2 (05:18→09:53)
[2018-09-30] MEDS: HEPARIN for SUB-Q USE 5,000 UNIT/ML VIAL. SQ SCH (05:57)
[2018-09-30 07:00] LABS: BASO % 0 % (0-3); EOS % 0 % (0-3); HEMATOCRIT 48.4 % (39.0-53.0); HEMOGLOBIN 16.6 g/dL (13.0-17.5); LYMPH # 1.2 x10^3/uL (1.0-4.8); LYMPH % 9 % (24-48); MEAN CORPUSCULAR HEMOGLOBIN 32 pg (25-35); MEAN CORPUSCULAR HGB CONC 34 g/dL (31-37); MEAN CORPUSCULAR VOLUME 94 fL (79-100); MONO # 0.5 x10^3/uL (0.0-1.1); MONO % 4 % (0-9); NEUT # 11.3 x10^3uL (1.8-7.7); NEUT % 86 % (31-73); PLATELET COUNT 147 x10^3/uL (140-400); RED BLOOD COUNT 5.18 x10^6/uL (4.30-5.70); RED CELL DISTRIBUTION WIDTH 12.8 % (11.5-14.5); WHITE BLOOD COUNT 13.1 x10^3/uL (4.0-11.0)
[2018-09-30 07:07] LABS: CALCIUM 8.3 mg/dL (8.5-10.1); CREATININE 0.8 mg/dL (0.7-1.3); GFR 98.9; POTASSIUM 4.3 mmol/L (3.5-5.1)
[2018-09-30 07:46] LABS: % ATYL 2 % (0-0); % BANDS 3 % (0-9); % LYMPHS 7 % (24-48); % MONOS 2 % (0-10); % SEGS 86 % (35-66); PLT ESTIMATE ADEQUATE (ADEQUATE); TOXIC GRANULATION SLIGHT
[2018-09-30] MEDS: methylPREDNISolone SOD SUCC PF 40 MG/ML VIAL. IV SCH (08:40)
[2018-09-30] MEDS: ACETAMINOPHEN 325 MG TABLET PO SCH (08:40)
[2018-09-30] MEDS: BENZONATATE 100 MG CAPSULE. PO SCH (08:40)
[2018-09-30] MEDS: LACTOBACILLUS RHAMNOSUS GG 1 CAPSULE. PO SCH (08:40)
[2018-09-30] MEDS: METOPROLOL TART IMMED RELEASE 25 MG TABLET PO SCH (08:41)
[2018-09-30] MEDS: NAPROXEN 500 MG TABLET PO SCH (08:41)
[2018-09-30] MEDS ORDERED: guaiFENesin/PS-EPHED 600/60MG 1 TAB TAB.ER.12H PO SCH (09:00)
[2018-09-30 11:07] VITALS: BP 173/88
--- NOTE | 2018-09-30 11:57 | PDOC ---
PROGRESS NOTES Diagnosis Problem Problems Medical Problems: (1) Alkaline phosphatase raised Status: Acute (2) COPD exacerbation Status: Acute (3) Dyspnea Status: Acute (4) Elevated blood sugar Status: Acute (5) Fever Status: Acute (6) Hypocalcemia Status: Acute (7) Severe sepsis Status: Acute Assessment Problems Medical Problems: (1) Alkaline phosphatase raised Status: Acute (2) COPD exacerbation Status: Acute (3) Dyspnea Status: Acute (4) Elevated blood sugar Status: Acute (5) Fever Status: Acute (6) Hypocalcemia Status: Acute (7) Severe sepsis Status: Acute 1. NSTEMI, demand mediated. Continue aspirin, beta nazario. Lipids pending. LVEF normal with normal wall motion. Plan for outpatient stress test in the near future. 2. Pneumonia - improving clinically. mgmt per PCP 3. hypertension - remains elevated. add ARB. 3. PHTN - PAS 51 mmHg by echo. suggest outpatient PFTs and sleep study 4. diabetes - per PCP 5. tobaccoism - cessation encouraged. Subjective feeling much better, "ready to go home":, no chest pain, breathing easy, no palpitations, lightheadedness or syncope Objective Vital Signs Date Time Temp Pulse Resp B/P (MAP) Pulse Ox O2 Delivery O2 Flow Rate FiO2 09/30/18 11:07 97.6 72 20 173/88 (116) 93 Room Air 09/30/18 08:10 2.0 Intake and Output 09/30/18 07:00 Intake Total 2800 ml Balance 2800 ml Intake Oral 1650 ml IV Total 1150 ml # Voids 4 Physical Exam gen: awake, alert, no acute distress CV: regular rate and rhythm, no gallops, clicks or rubs, no obvious murmurs Lungs: coarse with mildly decreased bases abd: soft, nontender, +bowel sounds ext: no edema Review of Relevant I have reviewed the following items magy (where applicable) has been applied. Labs Laboratory Tests Test 09/29/18 07:23 09/30/18 06:30 White Blood Count 15.5 x10^3/uL (4.0-11.0) 13.1 x10^3/uL (4.0-11.0) Red Blood Count 4.98 x10^6/uL (4.30-5.70) 5.18 x10^6/uL (4.30-5.70) Hemoglobin 15.9 g/dL (13.0-17.5) 16.6 g/dL (13.0-17.5) Hematocrit 46.3 % (39.0-53.0) 48.4 % (39.0-53.0) Mean Corpuscular Volume 93 fL (79-100) 94 fL (79-100) Mean Corpuscular Hemoglobin 32 pg (25-35) 32 pg (25-35) Mean Corpuscular Hemoglobin Concent 34 g/dL (31-37) 34 g/dL (31-37) Red Cell Distribution Width 12.9 % (11.5-14.5) 12.8 % (11.5-14.5) Platelet Count 129 x10^3/uL (140-400) 147 x10^3/uL (140-400) Neutrophils (%) (Auto) 91 % (31-73) 86 % (31-73) Lymphocytes (%) (Auto) 5 % (24-48) 9 % (24-48) Monocytes (%) (Auto) 4 % (0-9) 4 % (0-9) Eosinophils (%) (Auto) 0 % (0-3) 0 % (0-3) Basophils (%) (Auto) 0 % (0-3) 0 % (0-3) Neutrophils # (Auto) 14.1 x10^3uL (1.8-7.7) 11.3 x10^3uL (1.8-7.7) Lymphocytes # (Auto) 0.8 x10^3/uL (1.0-4.8) 1.2 x10^3/uL (1.0-4.8) Monocytes # (Auto) 0.6 x10^3/uL (0.0-1.1) 0.5 x10^3/uL (0.0-1.1) Eosinophils # (Auto) 0.0 x10^3/uL (0.0-0.7) 0.0 x10^3/uL (0.0-0.7) Basophils # (Auto) 0.0 x10^3/uL (0.0-0.2) 0.0 x10^3/uL (0.0-0.2) Sodium Level 139 mmol/L (136-145) 138 mmol/L (136-145) Potassium Level 4.1 mmol/L (3.5-5.1) 4.3 mmol/L (3.5-5.1) Chloride Level 103 mmol/L (98-107) 102 mmol/L (98-107) Carbon Dioxide Level 26 mmol/L (21-32) 30 mmol/L (21-32) Anion Gap 10 (6-14) 6 (6-14) Blood Urea Nitrogen 9 mg/dL (8-26) 12 mg/dL (8-26) Creatinine 0.8 mg/dL (0.7-1.3) 0.8 mg/dL (0.7-1.3) Estimated GFR (Cockcroft-Gault) 98.9 98.9 Glucose Level 172 mg/dL (70-99) 203 mg/dL (70-99) Calcium Level 8.0 mg/dL (8.5-10.1) 8.3 mg/dL (8.5-10.1) Vancomycin Level Trough 12.0 mcg/mL (10.0-20.0) Vancomycin Last Dose Date 09/29/2018 Vancomycin Last Dose Time 0000 Segmented Neutrophils % 86 % (35-66) Band Neutrophils % 3 % (0-9) Lymphocytes % 7 % (24-48) Atypical Lymphocytes % (Manual) 2 % (0-0) Monocytes % 2 % (0-10) Toxic Granulation Slight Platelet Estimate Adequate (ADEQUATE) Microbiology 09/26/18 Blood Culture - Preliminary, Resulted NO GROWTH AFTER 3 DAYS... 09/28/18 Urine Culture - Final, Complete 09/28/18 Urine Culture Result 1 (LUIS) - Final, Complete Medications Current Medications Sodium Chloride 1,000 ml @ 1,000 mls/hr Q1H IV Last administered on 09/26/18at 13:44; Start 09/26/18 at 13:11; Stop 09/26/18 at 14:10; Status DC Albuterol/ Ipratropium (Duoneb) 3 ml 1X ONCE NEB Last administered on at 13:15; Start 09/26/18 at 13:15; Stop 09/26/18 at 13:16; Status DC Methylprednisolone Sodium Succinate (SOLU-Medrol 125MG VIAL) 125 mg 1X ONCE IV Last administered on 09/26/18at 13:43; Start 09/26/18 at 13:15; Stop 09/26/18 at 13:16; Status DC Ibuprofen (Motrin) 800 mg 1X ONCE PO Last administered on 09/26/18at 13:44; Start 09/26/18 at 13:15; Stop 09/26/18 at 13:16; Status DC Sodium Chloride 1,000 ml @ 1,000 mls/hr 1X ONCE IV Last administered on at 16:04; Start 09/26/18 at 13:45; Stop 09/26/18 at 14:44; Status DC Ceftriaxone Sodium 1 gm/ Sodium Chloride 50 ml @ 100 mls/hr 1X ONCE IV Last administered on 09/26/18at 13:54; Start 09/26/18 at 13:45; Stop 09/27/18 at 11:54; Status DC Sodium Chloride 50 ml @ As Directed STK-MED ONCE .ROUTE ; Start 09/26/18 at 13:52 ; Stop 09/26/18 at 13:53; Status DC Ceftriaxone Sodium (Rocephin) 1 gm STK-MED ONCE .ROUTE ; Start 09/26/18 at 13:52 ; Stop 09/26/18 at 13:53; Status DC Sodium Chloride 1,000 ml @ 1,000 mls/hr 1X ONCE IV Last administered on at 14:30; Start 09/26/18 at 14:30; Stop 09/26/18 at 15:29; Status DC Sodium Chloride 1,000 ml @ 150 mls/hr Q6H40M IV Last administered on 09/27/18at 02:25; Start 09/26/18 at 14:18; Stop 09/27/18 at 14:17; Status DC Sodium Chloride 500 ml @ 0 mls/hr 1X ONCE IV ; Start 09/26/18 at 14:30; Stop 09/26/18 at 14:31; Status DC Acetaminophen (Tylenol) 325 mg TID PO Last administered on 09/27/18at 15:22; Start 09/26/18 at 21:00; Stop 09/27/18 at 15:34; Status DC Diclofenac Sodium (Voltaren) 1 abimael QID TP Last administered on 09/27/18at 15:22; Start 09/26/18 at 17:00; Stop 09/27/18 at 15:34; Status DC Cyclobenzaprine HCl (Flexeril) 10 mg PRN TID PRN PO MUSCLE SPASMS; Start at 15:45 Acetaminophen/ Hydrocodone Bitart (Lortab 5/325) 1 tab PRN Q6HRS PRN PO PAIN; Start 09/26/18 at 15:45 Non-Formulary Medication (Ibuprofen ) 1 tab TID PO ; Start 09/26/18 at 21:00; Stop 09/27/18 at 12:11; Status DC Non-Formulary Medication (Naproxen (Naprosyn)) 1 tab BID PO ; Start 09/26/18 at 21:00; Stop 09/27/18 at 12:21; Status DC Ciprofloxacin (Cipro) 500 mg BID PO ; Start 09/26/18 at 21:00; Status UNV Vancomycin HCl (Vanco Per Pharmacy) 1 each PRN DAILY PRN MC SEE COMMENTS Last administered on 09/29/18at 08:42; Start 09/26/18 at 15:15 Levofloxacin/ Dextrose 150 ml @ 150 mls/hr Q24H IV Last administered on at 16:14; Start 09/26/18 at 16:00 Methylprednisolone Sodium Succinate (SOLU-Medrol 40MG VIAL) 40 mg Q12HR IV Last administered on 09/30/18at 08:40; Start 09/26/18 at 21:00 Albuterol/ Ipratropium (Duoneb) 3 ml RTQID NEB Last administered on 09/30/18at 09 :53; Start 09/26/18 at 16:00 Vancomycin HCl 2 gm/Sodium Chloride 500 ml @ 250 mls/hr 1X ONCE IV Last administered on 09/26/18at 18:40; Start 09/26/18 at 18:00; Stop 09/26/18 at 19:59; Status DC Vancomycin HCl 1.75 gm/Sodium Chloride 500 ml @ 250 mls/hr Q12H IV Last administered on 09/28/18 08:04; Start 09/27/18 at 06:00; Stop 09/28/18 at 09:00; Status DC Vancomycin HCl (Vancomycin Trough Level) 1 each 1X ONCE MC Last administered on 09/28/18at 06:04; Start 09/28/18 at 05:30; Stop 09/28/18 at 05:31; Status DC Lactobacillus Rhamnosus (Culturelle) 1 cap BID PO Last administered on 08:40; Start 09/26/18 at 21:00 Diphenhydramine HCl (Benadryl Oral Elixir) 12.5 mg PRN Q6HRS PRN PO ITCHING; Start 09/26/18 at 17:15 Naproxen (Naprosyn) 500 mg BID PO Last administered on 09/30/18 08:41; Start at 12:30; Stop 09/30/18 at 11:36; Status DC Iohexol (Omnipaque 350 Mg/ml) 100 ml 1X ONCE IV Last administered on 09/27/18 14:01; Start 09/27/18 at 12:45; Stop 09/27/18 at 12:46; Status DC Info (Do NOT chart on this entry -- for MONITORING) 1 each PRN DAILY PRN MC SEE COMMENTS; Start 09/27/18 at 12:45; Stop 09/29/18 at 12:44; Status DC Zolpidem Tartrate (Ambien) 5 mg PRN QHS PRN PO INSOMNIA, MAY REPEAT IN 1HR Last administered on 09/29/18 21:31; Start 09/27/18 at 14:15 Benzonatate (Tessalon Perle) 200 mg QGM452 PO Last administered on 09/30/18 08: 40; Start 09/27/18 at 15:00 Guaifenesin (Mucinex D Er 600-60 Mg) 1 tab BID PO Last administered on 08:30; Start 09/27/18 at 21:00; Stop 09/29/18 at 10:03; Status DC Heparin Sodium (Porcine) (Heparin Sodium) 5,000 unit Q8HRS SQ Last administered on 09/30/18 05:57; Start 09/27/18 at 22:00 Acetaminophen (Tylenol) 650 mg TID PO Last administered on 09/30/18 08:40; Start 09/27/18 at 21:00 Diclofenac Sodium (Voltaren) 1 abimael PRN QID PRN TP pain Last administered on 09/29 08:28; Start 09/27/18 at 15:45 Guaifenesin (Robitussin Dm) 10 ml PRN Q6HRS PRN PO COUGH Last administered on 00:54; Start 09/27/18 at 19:30 Chlorphenir/ Hydrocodone Polistirex (Tussionex) 5 ml PRN Q12HR PRN PO COUGH Last administered on 09/29/18 21:31; Start 09/27/18 at 19:30 Vancomycin HCl 1.75 gm/Sodium Chloride 500 ml @ 250 mls/hr Q8H IV Last administered on 09/30/18 08:40; Start 09/28/18 at 16:00 Vancomycin HCl (Vancomycin Trough Level) 1 each 1X ONCE MC Last administered on 09/29/18 07:30; Start 09/29/18 at 07:30; Stop 09/29/18 at 07:31; Status DC Amlodipine Besylate (Norvasc) 10 mg 1X ONCE PO Last administered on 09/29/18 05:18; Start 09/29/18 at 05:30; Stop 09/29/18 at 05:31; Status DC Guaifenesin (Mucinex D Er 600-60 Mg) 1 tab DAILY PO Last administered on at 08:41; Start 09/30/18 at 09:00 Metoprolol Tartrate (Lopressor) 25 mg BID PO Last administered on 09/30/18 08: 41; Start 09/29/18 at 21:00 Amlodipine Besylate (Norvasc) 5 mg DAILY PO ; Start 09/30/18 at 11:45; Status UNV Active Scripts Active Ibuprofen 800 Mg Tablet 1 Tab PO TID [place] 5-325 Tablet (Hydrocodone Bit/Acetaminophen) 1 Each Tablet 1 Tab PO PRN Q6HRS PRN 14 Days Naprosyn (Naproxen) 500 Mg Tablet 1 Tab PO BID Voltaren (Diclofenac Sodium) 100 Gm Gel..gram. 1 Gm TP QID Cyclobenzaprine Hcl 10 Mg Tablet 1 Tab PO TID PRN 3 Days Reported Tylenol (Acetaminophen) 325 Mg Tablet 325 Mg PO Multi Vitamin Daily (Multivitamin) 1 Each Tablet 1 Each PO Vitamin C (Ascorbic Acid) 100 Mg Tablet 100 Mg PO Fish Oil ([place]-3 Fatty Acids) 300 Mg Capsule 300 Mg PO Zyrtec (Cetirizine Hcl) 10 Mg Capsule 10 Mg PO Cipro (Ciprofloxacin Hcl) 250 Mg Tablet 250 Mg PO Vitals/I & O Vital Sign - Last 24 Hours 09/29/18 09/29/18 09/29/18 09/29/18 15:22 15:53 18:55 20:00 Temp 98.2 97.6 Pulse 77 74 Resp 20 20 B/P (MAP) 168/90 (116) 164/83 (110) Pulse Ox 93 93 94 O2 Delivery Nasal Cannula Room Air Room Air Room Air O2 Flow Rate 2.0 09/29/18 09/29/18 09/29/18 09/30/18 20:42 21:31 22:50 05:05 Temp 97.7 97.4 Pulse 74 80 62 Resp 20 22 B/P (MAP) 164/83 167/82 (110) 165/89 (114) Pulse Ox 95 93 92 O2 Delivery Nasal Cannula Room Air Nasal Cannula O2 Flow Rate 2.0 2.0 09/30/18 09/30/18 09/30/18 09/30/18 05:19 08:10 08:41 09:54 Pulse 62 B/P (MAP) 165/89 Pulse Ox 97 95 O2 Delivery Nasal Cannula Room Air Room Air O2 Flow Rate 2.0 2.0 09/30/18 11:07 Temp 97.6 Pulse 72 Resp 20 B/P (MAP) 173/88 (116) Pulse Ox 93 O2 Delivery Room Air Intake and Output 09/29/18 09/29/18 09/30/18 15:00 23:00 07:00 Intake Total 720 ml 1130 ml 950 ml Balance 720 ml 1130 ml 950 ml PRATIK DUTTON APRN Sep 30, 2018 11:57
[2018-09-30 12:00] VITALS: BP 173/88
[2018-09-30] MEDS ORDERED: amLODIPine BESYLATE 5 MG TABLET PO SCH (12:00)
[2018-09-30] MEDS ORDERED: AMLO10TA4 PO (12:10)
[2018-09-30] MEDS ORDERED: LEVO500T59 PO (12:10)
--- NOTE | 2018-10-06 12:00 | EKG ---
[address] [address] Test Date: 2018-09-26 Test Time: 14:20:23 Pat Name: CODY BANKS Department: Room: 111 A Gender: Scrummaster: : 1960 Requested By: DARLIN FRANKLIN Order Number: [id number] Reading MD: Curry Reyna MD Measurements Intervals [place] Rate: P: SC: QRS: QRSD: T: QT: QTc: Interpretive Statements SR NON-SPECIFIC ST/T CHANGES Electronically Signed On 10-13-2018 21:26:28 CDT by Curry Reyna MD
--- NOTE | 2018-10-23 09:33 | DS ---
DATE OF DISCHARGE: 09/30/2018 HOSPITAL COURSE: The patient is a 58-year-old male who came in through the ER with increased shortness of breath, elevated temperature of 103, chest pain, nausea, vomiting or diaphoresis with white count of . The patient in turn was also noted to be a diabetic and in past refused immunizations for pneumonia and flu in the past. The patient's CT of the chest showed right middle lobe focal consolidation and air bronchograms with multifocal pneumonia, also coronary artery disease as well as hepatic steatosis. The patient was also noted to have elevated white count as high as 20,000 with 10 bands. The patient was ____ sepsis protocol. Procalcitonin was also ____. Liver enzymes were slightly elevated. Blood sugars were elevated and A1c was only 5.6. He did have elevated troponins. Cardiology will and they will continue to work him up per the patient. UA was unremarkable. The patient was on IV antibiotics. He made excellent progress . The patient was negative for strep pneumonia antigen. The offending organism was unknown. However, the patient will continue on antibiotics for 10 days to 2 weeks as an outpatient. Repeat his CAT scan on his chest. blood sugar as well. IMPRESSION: Sepsis, multifocal pneumonia, type 2 diabetes, essential hypertension, dehydration, elevated troponins, elevated lactic acids, history of previous bowel resection. The patient will follow up as indicated. Decreased activity. See MRAD. ____ with repeat CT scan in approximately ____ any possible problems with that pneumonia and make sure those two clearance. DARLIN FRANKLIN MD DR: ZECHARIAH/serenity JOB#: [id number] / [id number]
--- NOTE | 2018-11-06 13:36 | DS ---
DATE OF DISCHARGE: 09/30/2018 HOSPITAL COURSE: A 58-year-old male came in through the Emergency Room with increased shortness of breath, elevated temperature of 103, chest pain, nausea, vomiting, diaphoresis, white count of 12,000. The patient in turn was noted to be diabetic and the patient refused immunizations for pneumonia and flu in the past. The patient's CT of the chest showed right middle focal consolidation and air bronchograms with multifocal pneumonia, also coronary artery disease as well as hepatic steatosis. The patient was noted also to have an elevated white count later on were 20,000 with 10 bands. The patient was placed on sepsis protocol. Procalcitonin was also positive. Liver enzymes were slightly elevated. Blood sugars were elevated. A1c was only 5.6. He did have elevated troponins. Cardiology was consulted and they will continue to work with him as an outpatient. UA was unremarkable. The patient was placed on IV antibiotic therapy. He made excellent progress through his hospital stay. The patient was negative for strep pneumonia antigen. The offending organism was unknown; however, the patient was continued on antibiotics for 10 days to 2 weeks as an outpatient. Repeat his CAT scan of his chest, monitor blood sugar as well. IMPRESSION: Sepsis, multifocal pneumonia, type 2 diabetes, essential hypertension, dehydration, elevated troponins, elevated lactic acids, history of previous bowel resection. The patient will follow up as indicated. He will have decreased activity. See MRAD and will repeat CT scan in approximately 2 weeks for any possible problems with that pneumonia and make sure that those [address] are cleared. DARLIN FRANKLNI MD DR: ZECHARIAH/serenity JOB#: [id number] / [id number]
== END 2018-09-30 13:42 | disposition home or self-care (01) | DRG 871 ==
LOC: ER 12:53 → 1 SOUTH 14:23
PROVIDERS: ADMIT Family Medicine; ATTEND Family Medicine
DX: A41.9 Sepsis, unspecified organism (principal); I21.A1 Myocardial infarction type 2; J18.1 Lobar pneumonia, unspecified organism; J44.1 Chronic obstructive pulmonary disease with (acute) exacerbation; J44.0 Chronic obstructive pulmonary disease with (acute) lower respiratory infection; R65.20 Severe sepsis without septic shock; E11.65 Type 2 diabetes mellitus with hyperglycemia; E66.9 Obesity, unspecified; E83.51 Hypocalcemia; F17.210 Nicotine dependence, cigarettes, uncomplicated; I10 Essential (primary) hypertension; K57.90 Diverticulosis of intestine, part unspecified, without perforation or abscess without bleeding; Z90.49 Acquired absence of other specified parts of digestive tract
CPT/HCPCS: 36415; 71046; 71275; 80048; 80053; 80061; 80202; 81001; 82550; 83036; 83605; 83880; 84145; 84484; 85007; 85025; 85379; 87040; 87086; 87449; 87804; 93005; 93306; 94640; 96365; 96375; 99406; J0696; J1644; J1956; J2920; J2930; J3370; J7040; J7620; Q9967; 99285-25; J7030

== ENCOUNTER → 2018-10-16 | Outpatient (CLI) | payer OTHER ==
[2018-09-30 12:00] VITALS: BP 173/88
[~2018-10-16] MED LIST changes: +AMLO10TA4 PO; +LEVO500T59 PO
--- NOTE | 2018-10-16 14:30 | RAD ---
Indication:Scrotal swelling and pain for 5 days. TECHNIQUE: Grayscale, color Doppler and spectral waveform is of the testicles obtained. COMPARISON:None FINDINGS: The right testicle measures 5.7 x 4.0 x 3.0 cm and is homogeneous in echogenicity without focal lesion. Right testicle demonstrates evidence of blood flow. 6 mm simple epididymal head cyst is seen. The epididymal head is nonenlarged. Left testicle measures 5.6 x 3.8 x 2.7 cm and is homogeneous in echogenicity without focal lesion. The left testicle demonstrates evidence of blood flow. Epididymal head is nonenlarged. Mild Left varicoceles. IMPRESSION: 1. Bilateral testicles demonstrate evidence of blood flow. 2. Left varicocele. Electronically signed by: Tyron Dang DO (10/16/2018 2:27 PM) [facility]
--- NOTE | 2018-10-22 23:49 | DS ---
DATE OF DISCHARGE: 10/22/2018 HOSPITAL COURSE: The patient is a 58-year-old male who came in through the ER with increased shortness of breath, elevated temperature of 103, chest pain, nausea, vomiting or diaphoresis with white count of . The patient in turn was also noted to be a diabetic and in past refused immunizations for pneumonia and flu in the past. The patient's CT of the chest showed right middle lobe focal consolidation and air bronchograms with multifocal pneumonia, also coronary artery disease as well as hepatic steatosis. The patient was also noted to have elevated white count as high as 20,000 with 10 bands. The patient was ____ sepsis protocol. Procalcitonin was also ____. Liver enzymes were slightly elevated. Blood sugars were elevated and A1c was only 5.6. He did have elevated troponins. Cardiology will and they will continue to work him up per the patient. UA was unremarkable. The patient was on IV antibiotics. He made excellent progress . The patient was negative for strep pneumonia antigen. The offending organism was unknown. However, the patient will continue on antibiotics for 10 days to 2 weeks as an outpatient. Repeat his CAT scan on his chest. blood sugar as well. IMPRESSION: Sepsis, multifocal pneumonia, type 2 diabetes, essential hypertension, dehydration, elevated troponins, elevated lactic acids, history of previous bowel resection. The patient will follow up as indicated. Decreased activity. See MRAD. ____ with repeat CT scan in approximately ____ any possible problems with that pneumonia and make sure those two clearance. DARLIN FRANKLIN MD DR: ZECHARIAH/serenity JOB#: [id number] / [id number]
== END | disposition home or self-care (01) ==
LOC: US 07:40
PROVIDERS: ATTEND Nurse Practitioner Adult Health
DX: I86.1 Scrotal varices (principal); N43.3 Hydrocele, unspecified; N50.3 Cyst of epididymis
CPT/HCPCS: 76870

== ENCOUNTER → 2018-10-29 | Outpatient (CLI) | payer OTHER ==
[2018-09-30 12:00] VITALS: BP 173/88
[~2018-10-29] MED LIST changes: +REGADENOSON 0.4 MG/5 ML DISP.SYRIN. IV ONE
--- NOTE | 2018-10-29 13:27 | RAD ---
MR#: [id number] Date of Study: 10/29/2018 Ordering Physician: MEY SCOTT Referring Physician: DON CAMPBELL Tech: AMBREEN Olvera APPROVED REPORT Test Type: Pharmacological Stress Nurse/Tech: AMBREEN Olvera Test Indications: Non Stemi chest pain Cardiac History: COPD Medications: see EHR Medical History: see EHR Resting ECG: SR no acute changes Resting Heart Rate: 68 bpm Resting Blood Pressure: 143/74mmHg Pretest Chest Pain: None Nurse/Tech Notes Consent: The procedure was explained to the patient in lay terms. Informed consent was witnessed. Roe eout was entered into [employer]. History and Stress Test performed by AMBREEN Olvera Pharm. Details Pharmacologic stress testing was performed using 0.4mg per 5ml of regadenoson given intravenously ove r 7-10 seconds. POST EXERCISE Reason for Termination: Infusion complete Max HR: 103 bpm Max Blood Pressure: 136/66mmHg Blood Pressure response to exercise: Normal blood pressure response during stress. Chest Pain: No. Arrhythmia: No. ST Change: No. INTERPRETATION Stress EKG Conclusion: No evidence of acute EKG changes. Imaging Protocol IMAGE PROTOCOL: Rest Tc-99m/stress Tc-99m 1 day Rest: Stress: Viability: Radiopharm.Tc99m [id number] Sestamibi Dsza77kZu 33mCi Duration 16min. 13min. Img Date 10/29/2018 10/29/2018 Inj-Img Vptm77uec. 60min. Rest Admin Site:IV - Left AntecubitalAdministrator: AMBREEN Olvera Stress Admin Site: IV - Left AntecubitalAdministrator: AMBREEN Olvera STRESS DATA End Diast. Vol.196.0mlAv. Heart Rate77.0bpm LVEDV index BSA3.0mlCardiac Output0.1L/min End Syst. Vol.75.0mlCO Index BSA9.3L/min LVESV index BSA1.0mlMyocardial Iosi742.0g Eject. Tqyssuhx97.0% Stress Rates Pk. Fill Rate2.83EDV/secLVtime Pk. Fill 100.12msec Pk. Empty Rate3.23ESV/secLVtime Pk. Sfint170.19msec / Pk. Fill1.94EDV/sec Stress Scores Regional WT1.00Summed WT3.00 Regional WM0.00Summed WM3.00 LV Perfusion There is a large sized FIXED severe perfusion defect involving the inferior wall. This is likely sugg estive of diaphragmatic attenuation artifact given normal wall motion and lack of q waves on EKG. Wall Motion Grossly normal wall motion. EF 65% LV Perf. Quant 17 Seg. SSS16.00 17 Seg. SRS6.00 17 Seg. SDS10.00 Stress Defect Extent (% LAD)0.00Rest Defect Extent (% LAD)0.00Rev. Defect Extent (% LAD)0.00 Stress Defect Extent (% LCX) 58.80Rest Defect Extent (% LCX)15.00Rev. Defect Extent (% LCX)30.00 Stress Defect Extent (% RCA)47.80Rest Defect Extent (% RCA)36.70Rev. Defect Extent (% RCA)0.00 Stress Defect Extent (% NEVA)24.60Rest Defect Extent (% NEVA)11.70Rev. Defect Extent (% NEVA)7.80 Other Information Quality:Poor Risk Assessment: Low Risk Conclusion 1. No evidence of stress induced EKG changes. 2. Significant motion artifact. 3. FIXED inferior wall defect suggestive of prior infarct versus diaphragmatic attenuation artifact. No ischemia. 4. Normal EF at 65% 5. Low to moderate risk study Signed by : Curry Reyna, Electronically Approved : 10/29/2018 13:27:22
== END | disposition home or self-care (01) ==
LOC: NM 08:31
PROVIDERS: ATTEND Internal Medicine Cardiovascular Disease
DX: I21.4 Non-ST elevation (NSTEMI) myocardial infarction (principal); J44.9 Chronic obstructive pulmonary disease, unspecified
CPT/HCPCS: 78452; 93017; 96374; 96375; 96376; J2785

== ENCOUNTER → 2019-01-05 | Outpatient (CLI) | payer OTHER ==
[~2019-01-05] MED LIST changes: -REGADENOSON 0.4 MG/5 ML DISP.SYRIN. IV ONE
--- NOTE | 2019-01-05 15:08 | RAD ---
MR#: [id number] Date of Study: 01/05/2019 Ordering Physician: MEY SCOTT, Referring Physician: MEY SCOTT, Tech: Carole Almeida RDMS, RVT, RTR APPROVED REPORT Patient Location : OUT-PATIENT Indications Lower Extremity Pain : Varicose Veins Grayscale images of the bilateral saphenofemoral junctions do not reveal any obvious evidence of thro mbus. The right great saphenous vein measures 7.6 mm and the left great saphenous vein measures 3.9 m m. There is no evidence of reflux bilaterally. The bilateral lesser saphenous veins do not show any evidence of reflux. Critical Notification Critical Value: No <Conclusion> 1. No evidence of reflux in the greater and lesser saphenous veins. Signed by : Curry Reyna, Electronically Approved : 01/05/2019 15:07:46
== END | disposition home or self-care (01) ==
LOC: US 12:43
PROVIDERS: ATTEND Internal Medicine Cardiovascular Disease
DX: I83.93 Asymptomatic varicose veins of bilateral lower extremities (principal); R60.9 Edema, unspecified
CPT/HCPCS: 93970

== ENCOUNTER → 2019-01-06 | Outpatient (CLI) | payer OTHER ==
--- NOTE | 2019-01-06 12:29 | RAD ---
SHOULDER 2+V RIGHT History: Shoulder pain for one week Comparison: None. Findings: 3 views of the right shoulder are submitted. No acute fracture or dislocation is identified. Impression: 1. No acute osseous abnormality is identified by radiographs. Electronically signed by: Romeo Navarrete MD (01/06/2019 12:25 PM) [facility]
== END | disposition home or self-care (01) ==
LOC: DXRAD 11:41
PROVIDERS: ATTEND Nurse Practitioner Adult Health
DX: S49.91XA Unspecified injury of right shoulder and upper arm, initial encounter (principal); X58.XXXA Exposure to other specified factors, initial encounter; Y93.89 Activity, other specified; Y92.89 Other specified places as the place of occurrence of the external cause; Y99.8 Other external cause status
CPT/HCPCS: 73030

== ENCOUNTER 2019-01-29 13:27 | Emergency (ER) | payer OTHER ==
[~2019-01-29] VITALS: Ht 182.9 cm; Wt 113.4 kg
[2019-01-29 13:48] LABS: BASO # 0.1 x10^3/uL (0.0-0.2); BASO % 1 % (0-3); EOS # 0.1 x10^3/uL (0.0-0.7); EOS % 1 % (0-3); HEMATOCRIT 51.2 % (39.0-53.0); HEMOGLOBIN 17.5 g/dL (13.0-17.5); LYMPH % 18 % (24-48); MEAN CORPUSCULAR HEMOGLOBIN 32 pg (25-35); MEAN CORPUSCULAR HGB CONC 34 g/dL (31-37); MEAN CORPUSCULAR VOLUME 94 fL (79-100); MONO # 0.6 x10^3/uL (0.0-1.1); MONO % 5 % (0-9); NEUT # 8.6 x10^3uL (1.8-7.7); NEUT % 75 % (31-73); PLATELET COUNT 180 x10^3/uL (140-400); RED BLOOD COUNT 5.43 x10^6/uL (4.30-5.70); RED CELL DISTRIBUTION WIDTH 12.8 % (11.5-14.5); WHITE BLOOD COUNT 11.4 x10^3/uL (4.0-11.0)
[2019-01-29 14:02] LABS: ALBUMIN 3.9 g/dL (3.4-5.0); CALCIUM 8.8 mg/dL (8.5-10.1); GFR 76.5; POTASSIUM 3.7 mmol/L (3.5-5.1); TOTAL BILIRUBIN 0.4 mg/dL (0.2-1.0); TOTAL PROTEIN 7.9 g/dL (6.4-8.2)
--- NOTE | 2019-01-29 14:08 | RAD ---
Chest radiograph 01/29/2019 1:39 PM INDICATION: Chest pain, palpitations COMPARISON: September 26, 2018 TECHNIQUE: Frontal and lateral views of the chest are provided. FINDINGS: The cardiomediastinal silhouette is within normal limits. There are no pleural effusions. There is no pulmonary vascular congestion. There is no pneumothorax. The lungs are clear. 6 mm subpleural calcified nodule is identified in the left midlung. No significant osseous abnormality is identified. IMPRESSION: No acute cardiopulmonary process. Electronically signed by: Pauline Alejandro MD (01/29/2019 2:05 PM) [id number]
--- NOTE | 2019-01-29 14:49 | PHYS DOC ---
Past History Past Medical History: COPD, Diverticulitis, Hypertension Past Surgical History: Colectomy Smoking: Cigarettes Alcohol Use: Occasionally Drug Use: None Adult General Chief Complaint Chief Complaint: Palpitations HPI HPI 58-year-old male presents with palpitations. Patient states that he has been davis ving intermittent palpitations for several days. These episodes usually last for a couple of minutes. He presents today because he feels like he is having heart fluttering for the last one hour. He describes it as a skipping kind of feel. It is not pain. He does have some shortness of breath with these episodes. Since arriving in the ED, he is not having the palpitations feeling, but still feels mildly short of breath. He is not diaphoretic. Patient had a stress test 2 months ago. He has no significant cardiac history. He denies fever or chills. The palpitations started after the patient was placed on Lasix and potassium supplement. Most recent addition to his medicines was a potassium supplement 2 weeks ago. Review of Systems Review of Systems Constitutional: Denies fever or chills [] Eyes: Denies change in visual acuity, redness, or eye pain [] HENT: Denies nasal congestion or sore throat [] Respiratory: Denies cough or shortness of breath [] Cardiovascular: No additional information not addressed in HPI [] GI: Denies abdominal pain, nausea, vomiting, bloody stools or diarrhea [] : Denies dysuria or hematuria [] Musculoskeletal: Denies back pain or joint pain [] Integument: Denies rash or skin lesions [] Neurologic: Denies headache, focal weakness or sensory changes [] Endocrine: Denies polyuria or polydipsia [] All other systems were reviewed and found to be within normal limits, except as documented in this note. Allergies Allergies Allergies Coded Allergies Type Severity Reaction Last Updated Verified Fenofibrate Nanocrystallized Allergy Intermediate 09/26/18 Yes Penicillins Allergy Intermediate 09/26/18 Yes fenofibrate,micronized Allergy Intermediate 09/26/18 Yes Physical Exam Physical Exam Constitutional: Well developed, obese, well nourished, no acute distress, non- toxic appearance. [] HENT: Normocephalic, atraumatic, bilateral external ears normal, oropharynx moist, no oral exudates, nose normal. [] Eyes: PERRLA, EOMI, conjunctiva normal, no discharge. [] Neck: Normal range of motion, no tenderness, supple, no stridor. [] Cardiovascular:Heart rate regular rhythm, no murmur [] Lungs & Thorax: Bilateral breath sounds clear to auscultation [] Abdomen: Bowel sounds normal, soft, no tenderness, no masses, no pulsatile masses. [] Skin: Warm, dry, no erythema, no rash. [] Back: No tenderness, no CVA tenderness. [] Extremities: No tenderness, no cyanosis, no clubbing, ROM intact, no edema. [] Neurologic: Alert and oriented X 3, normal motor function, normal sensory function, no focal deficits noted. [] Psychologic: Affect normal, judgement normal, mood normal. [] Current Patient Data Vital Signs Vital Signs Date Time Temp Pulse Resp B/P (MAP) Pulse Ox O2 Delivery O2 Flow Rate FiO2 01/29/19 13:31 98.1 90 18 97 Room Air Lab Results Laboratory Tests Test 01/29/19 13:35 White Blood Count 11.4 x10^3/uL (4.0-11.0) H Red Blood Count 5.43 x10^6/uL (4.30-5.70) Hemoglobin 17.5 g/dL (13.0-17.5) Hematocrit 51.2 % (39.0-53.0) Mean Corpuscular Volume 94 fL (79-100) Mean Corpuscular Hemoglobin 32 pg (25-35) Mean Corpuscular Hemoglobin Concent 34 g/dL (31-37) Red Cell Distribution Width 12.8 % (11.5-14.5) Platelet Count 180 x10^3/uL (140-400) Neutrophils (%) (Auto) 75 % (31-73) H Lymphocytes (%) (Auto) 18 % (24-48) L Monocytes (%) (Auto) 5 % (0-9) Eosinophils (%) (Auto) 1 % (0-3) Basophils (%) (Auto) 1 % (0-3) Neutrophils # (Auto) 8.6 x10^3uL (1.8-7.7) H Lymphocytes # (Auto) 2.0 x10^3/uL (1.0-4.8) Monocytes # (Auto) 0.6 x10^3/uL (0.0-1.1) Eosinophils # (Auto) 0.1 x10^3/uL (0.0-0.7) Basophils # (Auto) 0.1 x10^3/uL (0.0-0.2) Sodium Level 134 mmol/L (136-145) L Potassium Level 3.7 mmol/L (3.5-5.1) Chloride Level 98 mmol/L (98-107) Carbon Dioxide Level 26 mmol/L (21-32) Anion Gap 10 (6-14) Blood Urea Nitrogen 9 mg/dL (8-26) Creatinine 1.0 mg/dL (0.7-1.3) Estimated GFR (Cockcroft-Gault) 76.5 BUN/Creatinine Ratio 9 (6-20) Glucose Level 181 mg/dL (70-99) H Calcium Level 8.8 mg/dL (8.5-10.1) Total Bilirubin 0.4 mg/dL (0.2-1.0) Aspartate Amino Transferase (AST) 23 U/L (15-37) Alanine Aminotransferase (ALT) 47 U/L (16-63) Alkaline Phosphatase 150 U/L (46-116) H Total Protein 7.9 g/dL (6.4-8.2) Albumin 3.9 g/dL (3.4-5.0) Albumin/Globulin Ratio 1.0 (1.0-1.7) EKG EKG Sinus rhythm, rate 91, normal axis, no ST elevations or depressions.[] Radiology/Procedures Radiology/Procedures [] Impressions: Chest radiograph 01/29/2019 1:39 PM INDICATION: Chest pain, palpitations COMPARISON: September 26, 2018 TECHNIQUE: Frontal and lateral views of the chest are provided. FINDINGS: The cardiomediastinal silhouette is within normal limits. There are no pleural effusions. There is no pulmonary vascular congestion. There is no pneumothorax. The lungs are clear. 6 mm subpleural calcified nodule is identified in the left midlung. No significant osseous abnormality is identified. IMPRESSION: No acute cardiopulmonary process. Electronically signed by: Da Aguilar MD (01/29/2019 2:05 PM) [id number] DICTATED AND SIGNED BY: DA AGUILAR MD DATE: 01/29/19 [id number] CC: HAYLEY ALEMAN DO; DARLIN FRANKLIN MD ~ Course & Med Decision Making Course & Med Decision Making Pertinent Labs and Imaging studies reviewed. (See chart for details) The patient's EKG is unremarkable. His labs are unremarkable. His troponin is negative. His chest x-ray is negative for acute findings. We have not observed any runs of tachycardia or bradycardia on the monitor since the patient has been in the emergency room. I'm unable to definitively identify why the patient is having symptoms he is having. It does not appear to be life-threatening. I will advise that he follow-up with his PCP and director fraud. He is stable for discha rge at this time. [] Dragon Disclaimer Dragon Disclaimer This electronic medical record was generated, in whole or in part, using a voice recognition dictation system. Departure Departure: Impression: Primary Impression: Palpitations Disposition: 01 HOME, SELF-CARE Condition: STABLE Referrals: DARLIN FRANKLIN MD (PCP) Patient Instructions: Palpitations, [id number]-da-[id number] HAYLEY ALEMAN DO Jan 29, 2019 14:49
[2019-01-29 15:21] VITALS: BP 157/101
--- NOTE | 2019-01-29 16:54 | EKG ---
[address] [address] Test Date: 2019-01-29 Test Time: 13:38:23 Pat Name: CODY BANKS Department: Room: Gender: M Resident Manager: : [id number] Requested By: HAYLEY ALEMAN Order Number: [id number] Reading MD: Measurements Intervals [place] Rate: 91 P: 41 RI: 186 QRS: 50 QRSD: 98 T: 62 QT: 350 QTc: 432 Interpretive Statements SINUS RHYTHM NO SPECIFIC ECG ABNORMALITIES RI6.01 No previous ECG available for comparison
== END 2019-01-29 15:30 | disposition home or self-care (01) ==
LOC: ER 13:27
DX: R00.2 Palpitations (principal); R06.02 Shortness of breath; R07.9 Chest pain, unspecified; I10 Essential (primary) hypertension; J44.9 Chronic obstructive pulmonary disease, unspecified; F17.210 Nicotine dependence, cigarettes, uncomplicated; Z88.0 Allergy status to penicillin; Z88.8 Allergy status to other drugs, medicaments and biological substances
CPT/HCPCS: 36415; 71046; 80053; 84484; 85025; 93005; 99285

== ENCOUNTER → 2020-08-24 | Outpatient (CLI) | payer OTHER ==
--- NOTE | 2020-08-24 13:59 | RAD ---
INDICATION: Reason: CHEST PAIN / Spl. Instructions: / History: COMPARISON: January 2019 FINDINGS: Frontal and lateral views of chest obtained. Cardiac silhouette is enlarged. Patchy opacities bilaterally including interstitial and nodular compo nent degenerative changes the spine. IMPRESSION: * Bilateral pulmonic opacities including interstitial and nodular component. Differential considerat ions would include mild edema or interstitial infiltrate. Follow-up could be obtained to ensure that this appropriately decreases to exclude neoplastic nodule contributing. Electronically signed by: Neri De Anda MD (08/24/2020 1:57 PM) [id number]
== END ==
LOC: DXRAD 13:11
PROVIDERS: ATTEND Family Medicine
DX: R91.8 Other nonspecific abnormal finding of lung field (principal)
CPT/HCPCS: 71046

== ENCOUNTER → 2020-09-13 | Outpatient (CLI) | payer OTHER ==
[2020-09-13 14:32] LABS: BASO # 0.1 x10^3/uL (0.0-0.2); BASO % 1 % (0-3); EOS # 0.1 x10^3/uL (0.0-0.7); EOS % 1 % (0-3); HEMATOCRIT 48.1 % (39.0-53.0); HEMOGLOBIN 16.2 g/dL (13.0-17.5); LYMPH # 2.4 x10^3/uL (1.0-4.8); LYMPH % 23 % (24-48); MEAN CORPUSCULAR HEMOGLOBIN 31 pg (25-35); MEAN CORPUSCULAR HGB CONC 34 g/dL (31-37); MEAN CORPUSCULAR VOLUME 92 fL (79-100); MONO # 0.9 x10^3/uL (0.0-1.1); MONO % 9 % (0-9); NEUT # 6.9 x10^3uL (1.8-7.7); NEUT % 66 % (31-73); PLATELET COUNT 209 x10^3/uL (140-400); RED BLOOD COUNT 5.22 x10^6/uL (4.30-5.70); RED CELL DISTRIBUTION WIDTH 12.5 % (11.5-14.5); WHITE BLOOD COUNT 10.4 x10^3/uL (4.0-11.0)
[2020-09-13 19:50] LABS: ALBUMIN 3.7 g/dL (3.4-5.0); ALBUMIN/GLOBULIN RATIO 0.8 (1.0-1.7); CALCIUM 8.9 mg/dL (8.5-10.1); POTASSIUM 4.1 mmol/L (3.5-5.1); TOTAL BILIRUBIN 0.4 mg/dL (0.2-1.0); TOTAL PROTEIN 8.1 g/dL (6.4-8.2)
[2020-09-14 15:16] LABS: HDLC 23 mg/dL (40-60); LDLC 84 mg/dL (0-100); THYROID STIM HORMONE (TSH) 1.438 uIU/mL (0.358-3.740); TRIGLYCERIDES 430 mg/dL (0-150); VLDLC 86 mg/dL (0-40)
[2020-09-14 15:17] LABS: FREE T4 > 8.00 ng/dL (0.76-1.46)
== END ==
LOC: LAB 13:58
PROVIDERS: ATTEND Family Medicine
DX: J44.0 Chronic obstructive pulmonary disease with (acute) lower respiratory infection (principal); I10 Essential (primary) hypertension
CPT/HCPCS: 36415; 80053; 80061; 84439; 84443; 85025

== ENCOUNTER → 2021-01-22 | Outpatient (CLI) | payer OTHER ==
--- NOTE | 2021-01-22 12:57 | RAD ---
EXAM: Chest, 2 views. HISTORY: Hypertension. COMPARISON: 08/24/2020. FINDINGS: 2 views of the chest are obtained. There is no infiltrate, pleural effusion or pneumothorax . The heart is normal in size. There is an incidental azygos lobe. There is a calcified granuloma wit hin the lateral left upper lobe. IMPRESSION: No acute pulmonary finding. Electronically signed by: Nessa Hernandez MD (01/22/2021 12:55 PM) [id number]
--- NOTE | 2021-01-22 13:00 | RAD ---
EXAM: Right knee, 3 views. HISTORY: Pain. COMPARISON: None. FINDINGS: 3 views of the right knee are obtained. There is no fracture, dislocation or subluxation. T here is a small joint effusion. There is a 10 mm osseous excrescence along the medial distal femoral metaphysis, likely due to an osteochondroma or tug lesion. There is a suspected enchondroma within th e distal femoral metaphysis measuring 2.1 cm. IMPRESSION: 1. Small right knee effusion. 2. No acute osseous finding. 3. Suspected enchondroma and small tug lesion or osteochondroma within the distal femur. Electronically signed by: Nessa Hernandez MD (01/22/2021 12:57 PM) [id number]
[2021-01-22 13:06] LABS: BASO # 0.1 x10^3/uL (0.0-0.2); BASO % 1 % (0-3); EOS # 0.1 x10^3/uL (0.0-0.7); EOS % 1 % (0-3); HEMATOCRIT 49.7 % (39.0-53.0); HEMOGLOBIN 17.1 g/dL (13.0-17.5); LYMPH # 2.2 x10^3/uL (1.0-4.8); LYMPH % 23 % (24-48); MEAN CORPUSCULAR HEMOGLOBIN 32 pg (25-35); MEAN CORPUSCULAR HGB CONC 34 g/dL (31-37); MEAN CORPUSCULAR VOLUME 92 fL (79-100); MONO # 0.7 x10^3/uL (0.0-1.1); MONO % 8 % (0-9); NEUT # 6.7 x10^3uL (1.8-7.7); NEUT % 67 % (31-73); PLATELET COUNT 174 x10^3/uL (140-400); RED BLOOD COUNT 5.41 x10^6/uL (4.30-5.70); RED CELL DISTRIBUTION WIDTH 12.8 % (11.5-14.5); WHITE BLOOD COUNT 9.9 x10^3/uL (4.0-11.0)
[2021-01-22 13:34] LABS: ALBUMIN 4.1 g/dL (3.4-5.0); ALBUMIN/GLOBULIN RATIO 1.1 (1.0-1.7); C REACTIVE PROTEIN 10.2 mg/L (0-3.3); CALCIUM 8.7 mg/dL (8.5-10.1); CREATININE 0.9 mg/dL (0.7-1.3); GFR 85.8; POTASSIUM 3.9 mmol/L (3.5-5.1); TOTAL BILIRUBIN 0.4 mg/dL (0.2-1.0); TOTAL PROTEIN 7.7 g/dL (6.4-8.2)
[2021-01-23 15:33] LABS: HDLC 26 mg/dL (40-60); LDLC 109 mg/dL (0-100); THYROID STIM HORMONE (TSH) 1.628 uIU/mL (0.358-3.740); TRIGLYCERIDES 302 mg/dL (0-150); VLDLC 60 mg/dL (0-40)
[2021-01-23 15:34] LABS: FREE T4 > 8.00 ng/dL (0.76-1.46)
== END ==
LOC: LAB 12:27
PROVIDERS: ATTEND Family Medicine
DX: M25.461 Effusion, right knee (principal); J84.10 Pulmonary fibrosis, unspecified; Q33.1 Accessory lobe of lung; I10 Essential (primary) hypertension; J32.9 Chronic sinusitis, unspecified; E03.9 Hypothyroidism, unspecified; E78.01 Familial hypercholesterolemia; R35.1 Nocturia
CPT/HCPCS: 36415; 71046; 73562; 80053; 80061; 84153; 84439; 84443; 85025; 86140; G0103